=== PATIENT | male | born 1960 | race Caucasian/White ===

== ENCOUNTER → 2016-09-07 | Outpatient (CLI) | payer BC ==
--- NOTE | 2016-09-07 09:26 | MR ---
EXAMINATION TYPE: MR shoulder LT wo con DATE OF EXAM: 09/07/2016 6:53 AM COMPARISON: 12/02/2015 and radiographs 08/25/2016 HISTORY: 56-year-old male with left shoulder Pain, status post surgery slipped and fell on left shoul isaiah TECHNIQUE: Multiplanar, multisequence imaging of the left shoulder is performed without contrast. FINDINGS: Intracapsular portion of the long head biceps tendon is not seen and could be severely tendinotic. Th e extracapsular portion of the lung biceps tendon is first seen along the lower bicipital groove, sag ittal image 7. This is a new finding from prior exam. There appears to be partial tearing of the superior most aspect of the subscapularis tendon. Mild degenerative joint space narrowing and marginal spurring at the acromioclavicular joint likely r elated to interval subacromial decompression. There is been interval rotator cuff repair with double row of suture anchors present. Supraspinatus a nd infraspinatus tendons are markedly heterogeneous but there is no retracted full-thickness rotator cuff tear seen. There is fluid within the overlying subacromial/subdeltoid bursa and new patchy bone marrow edema along the superior humeral head and a 2.1 cm wide by 1.9 cm AP and Hill-Sachs deformity which appears slightly larger as compared to 12/02/2015. Moderate cartilage thinning within the glenohumeral joint. The superior labrum appears degenerative and torn. There is greater degree of abnormal signal within the anterior superior labrum is compared to prior exam and possible tear of the anterior labrum exten ding down to the anterior inferior glenoid. No significant glenohumeral joint effusion. Spinoglenoid groove is clear. There are mild fatty streaks now seen within the subscapularis, supraspinatus and infraspinatus muscl e bellies. Patchy red marrow is present and can be seen in the setting of anemia, obesity, smoking, and chronic disease. IMPRESSION: 1. Interval supraspinatus and infraspinatus tendon repair. No evidence for a full-thickness retracte d re-tear. Partial tear of the superior most subscapularis tendon fibers. The majority of the subscap ularis tendon remains intact. 2. Extensive heterogeneity of the cuff could be combination of postsurgical change, tendinosis, and c ontusion given the patient's reported injury. 3. New bone marrow edema at the patient's Hill-Sachs deformity which now appears minimally larger. Co rrelate for a recent recurrent shoulder dislocation. Mild to moderate subacromial/subdeltoid bursal effusion is probably reactive. 4. Progressive superior labral tear now with possible extension anteriorly down to the anterior infer ior glenoid. 5. The intracapsular long head biceps tendon is now poorly visualized and may be torn. 6. Mild to moderate glenohumeral joint osteoarthrosis.
== END | disposition home or self-care (01) ==
LOC: RADMRIMAIN 06:15
PROVIDERS: ATTEND Orthopaedic Surgery
DX: S46.812A Strain of other muscles, fascia and tendons at shoulder and upper arm level, left arm, initial encounter (principal); Z98.890 Other specified postprocedural states; S43.432A Superior glenoid labrum lesion of left shoulder, initial encounter; M19.012 Primary osteoarthritis, left shoulder

== ENCOUNTER → 2017-06-03 | Outpatient (CLI) | payer BC | END | disposition home or self-care (01) | LOC: LABWHC1 12:34 | PROVIDERS: ATTEND Family Medicine | DX: E78.5 Hyperlipidemia, unspecified (principal); E03.9 Hypothyroidism, unspecified | CPT/HCPCS: 36415; 80061; 84439; 84443 ==

== ENCOUNTER 2017-07-29 23:58 | Emergency (ER) | payer BC ==
[2017-07-30] MEDS ORDERED: ACETAMINOPHEN IV (For NPO) 1,000 MG in EMPTY BAG 1 BAG IVPB STA (00:33)
[2017-07-30] MEDS ORDERED: SODIUM CHLORIDE 0.9% 1,000 ML IV STA ×2 (00:33)
[2017-07-30] MEDS ORDERED: KETOROLAC 30 MG/ML 1 ML VIAL IVP STA ×2 (00:33→03:44)
[2017-07-30] MEDS ORDERED: SODIUM CHLORIDE 0.9% 500 ML IV STA (00:33)
[2017-07-30 00:46] LABS: Basophils % (A) 0 %; Eosinophils # (A) 0.2 k/uL (0-0.7); Eosinophils % (A) 1 %; HCT 46.3 % (39.0-53.0); HGB 14.7 gm/dL (13.0-17.5); Lymphocytes # (A) 0.7 k/uL (1.0-4.8); Lymphocytes % (A) 5 %; MCH 31.2 pg (25.0-35.0); MCHC 31.9 g/dL (31.0-37.0); MCV 97.9 fL (80.0-100.0); Mean Platelet Volume 7.3; Monocytes % (A) 7 %; Neutrophils # (A) 11.4 k/uL (1.3-7.7); Neutrophils % (A) 85 %; Platelet Count 234 k/uL (150-450); RBC 4.73 m/uL (4.30-5.90); RDW 12.5 % (11.5-15.5); WBC 13.4 k/uL (3.8-10.6)
[2017-07-30 00:57] LABS: ALT 22 U/L (21-72); AST 20 U/L (17-59); Albumin 3.9 g/dL (3.5-5.0); Alkaline Phosphatase 70 U/L (38-126); Anion Gap 10 mmol/L; Blood Urea Nitrogen 16 mg/dL (9-20); Calcium 8.1 mg/dL (8.4-10.2); Carbon Dioxide 29 mmol/L (22-30); Chloride 99 mmol/L (98-107); Glucose 92 mg/dL (74-99); Lipase 69 U/L (23-300); Magnesium 1.9 mg/dL (1.6-2.3); Potassium 4.2 mmol/L (3.5-5.1); Sodium 138 mmol/L (137-145); Total Bilirubin 0.7 mg/dL (0.2-1.3); Total Protein 6.6 g/dL (6.3-8.2)
[2017-07-30 00:59] LABS: Creatine Kinase 146 U/L (55-170)
[2017-07-30 01:00] LABS: D-Dimer 0.66 mg/L FEU (<0.60); Partial Thromboplastin Time 25.5 sec (22.0-30.0); Prothrombin Time 9.5 sec (9.0-12.0)
--- NOTE | 2017-07-30 01:04 | ED ---
General Adult HPI - General Chief complaint: Chest Pain Stated complaint: Chest Pain/GALILEO Time Seen by Provider: 07/30/17 00:07 Source: patient, RN notes reviewed, old records reviewed Mode of arrival: wheelchair Limitations: no limitations - History of Present Illness Initial comments: This is a 57-year-old male for the ER for evaluation of chest pain chest pain that awoke him from sleep earlier this morning and has persisted until today. Patient has no prior history of heart disease. Patient states his chest pain is having is in discomfort in his chest with shortness of breath. Patient states he does feel that he may have a fever, has been diaphoretic. No travel history no known sick contacts. Patient states he has difficulty taking a deep breath - Related Data Home Medications Medication Instructions Recorded Confirmed Ascorbic Acid [Vitamin C] 3,000 mg PO DAILY 07/30/17 07/30/17 Aspirin [Children's Aspirin] 81 mg PO DAILY 07/30/17 07/30/17 Echinacea 400 mg PO DAILY 07/30/17 07/30/17 Losartan Potassium [Losartan 50 mg PO DAILY 07/30/17 07/30/17 Potassium] Saw [place] 160 mg PO DAILY 07/30/17 07/30/17 Terbinafine [LamISIL] 250 mg PO DAILY 07/30/17 07/30/17 Thyroid,Pork [Thyroid] 30 mg PO DAILY 07/30/17 07/30/17 Ubidecarenone [Co Q-10] 400 mg PO DAILY 07/30/17 07/30/17 Previous Rx's Medication Instructions Recorded Acetaminophen with Codeine 1 tab PO Q4H PRN #20 tab 07/30/17 [Tylenol w/codeine #3] Albuterol Sulfate [Proair Hfa] 1 - 2 puff INHALATION Q4H PRN #1 07/30/17 inhaler Levofloxacin [Levaquin] 750 mg PO DAILY #7 tab 07/30/17 Naproxen [Naprosyn] 500 mg PO Q12HR PRN #30 tab 07/30/17 Allergies Allergy/AdvReac Type Severity Reaction Status Date / Time latex Allergy Itching/JESUS Verified 07/30/17 00:05 H Milk Containing Products Allergy "SINUS Verified 07/30/17 00:05 [Dairy] PROBLEMS" Penicillins Allergy Unknown Verified 07/30/17 00:05 Childhood wheat Allergy "SINUS Verified 07/30/17 00:05 PROBLEMS" Yeast Allergy "SINUS Verified 07/30/17 00:05 PROBLEMS" Review of Systems ROS Statement: Those systems with pertinent positive or pertinent negative responses have been documented in the HPI. ROS Other: All systems not noted in ROS Statement are negative. Past Medical History Past Medical History: Skin Disorder Additional Past Medical History / Comment(s): hx of scoriasis History of Any Multi-Drug Resistant Organisms: None Reported Past Surgical History: Appendectomy Past Anesthesia/Blood Transfusion Reactions: No Reported Reaction Past Psychological History: No Psychological Hx Reported Smoking Status: Never smoker Past Alcohol Use History: None Reported Past Drug Use History: None Reported - Past Family History Father Family Medical History: Cancer Additional Family Medical History / Comment(s): prostate General Exam Limitations: no limitations General appearance: alert, in no apparent distress Head exam: Present: atraumatic, normocephalic, normal inspection Eye exam: Present: normal appearance, PERRL, EOMI. Absent: scleral icterus, conjunctival injection, periorbital swelling ENT exam: Present: normal exam, mucous membranes moist Neck exam: Present: normal inspection. Absent: tenderness, meningismus, lymphadenopathy Respiratory exam: Present: normal lung sounds bilaterally. Absent: respiratory distress, wheezes, rales, rhonchi, stridor Cardiovascular Exam: Present: regular rate, normal rhythm, normal heart sounds. Absent: systolic murmur, diastolic murmur, rubs, gallop, clicks GI/Abdominal exam: Present: soft, normal bowel sounds. Absent: distended, tenderness, guarding, rebound, rigid Extremities exam: Present: normal inspection, full ROM, normal capillary refill. Absent: tenderness, pedal edema, joint swelling, calf tenderness Back exam: Present: normal inspection Neurological exam: Present: alert, oriented X3, CN II-XII intact Psychiatric exam: Present: normal affect, normal mood Skin exam: Present: warm, dry, intact, normal color. Absent: rash Course Vital Signs 07/30/17 07/30/17 07/30/17 00:01 00:30 01:46 Temperature 100.3 F H Pulse Rate 83 82 Respiratory 22 22 18 Rate Blood Pressure 159/87 135/76 O2 Sat by Pulse 96 100 Oximetry 07/30/17 07/30/17 07/30/17 02:40 03:09 03:19 Temperature 98.8 F Pulse Rate 77 70 74 Respiratory 20 18 Rate Blood Pressure 111/65 110/64 O2 Sat by Pulse 97 99 Oximetry 07/30/17 07/30/17 07/30/17 03:25 04:03 05:20 Temperature Pulse Rate 75 87 81 Respiratory 20 18 Rate Blood Pressure 114/61 104/62 O2 Sat by Pulse 95 98 Oximetry - Reevaluation(s) Reevaluation #1: Multiple re-evaluations, troponin 2, chest pain resolved. Patient is a positive pneumonia feeling better with initial treatment and patient would like to be discharged EKG Findings - EKG Comments: EKG Findings:: EKG shows normal sinus rhythm rate of 81, MI 146, QRS 80, QTC 411 Medical Decision Making - Medical Decision Making 57 male the ER for evaluation of chest pain. Patient with positive pneumonia, patient underwent troponin 2, CTA which were all negative, patient's feeling better with breathing treatments here in the ER. As well as fever control. Patient can be discharged home - Lab Data Result diagrams: 07/30/17 00:30 07/30/17 00:30 Lab Results 07/30/17 07/30/17 07/30/17 Range/Units 00:30 00:30 00:30 WBC 13.4 H (3.8-10.6) k/uL RBC 4.73 (4.30-5.90) m/uL Hgb 14.7 (13.0-17.5) gm/dL Hct 46.3 (39.0-53.0) % MCV 97.9 (80.0-100.0) fL MCH 31.2 (25.0-35.0) pg MCHC 31.9 (31.0-37.0) g/dL RDW 12.5 (11.5-15.5) % Plt Count 234 (150-450) k/uL Neutrophils % 85 % Lymphocytes % 5 % Monocytes % 7 % Eosinophils % 1 % Basophils % 0 % Neutrophils # 11.4 H (1.3-7.7) k/uL Lymphocytes # 0.7 L (1.0-4.8) k/uL Monocytes # 1.0 (0-1.0) k/uL Eosinophils # 0.2 (0-0.7) k/uL Basophils # 0.0 (0-0.2) k/uL PT (9.0-12.0) sec INR (<1.2) APTT (22.0-30.0) sec D-Dimer (<0.60) mg/L FEU Sodium (137-145) mmol/L Potassium (3.5-5.1) mmol/L Chloride (98-107) mmol/L Carbon Dioxide (22-30) mmol/L Anion Gap mmol/L BUN (9-20) mg/dL Creatinine (0.66-1.25) mg/dL Est GFR (MDRD) Af Amer (>60 ml/min/1.73 sqM) Est GFR (MDRD) Non-Af (>60 ml/min/1.73 sqM) Glucose (74-99) mg/dL Calcium (8.4-10.2) mg/dL Magnesium (1.6-2.3) mg/dL Total Bilirubin (0.2-1.3) mg/dL AST (17-59) U/L ALT (21-72) U/L Alkaline Phosphatase (38-126) U/L Total Creatine Kinase 146 (55-170) U/L CK-MB (CK-2) 1.1 (0.0-2.4) ng/mL CK-MB (CK-2) Rel Index 0.8 Troponin I <0.012 (0.000-0.034) ng/mL NT-Pro-B Natriuret Pep pg/mL Total Protein (6.3-8.2) g/dL Albumin (3.5-5.0) g/dL Lipase (23-300) U/L Influenza Type A RNA Not Detected (Not Detectd) Influenza Type B (PCR) Not Detected (Not Detectd) 07/30/17 07/30/17 07/30/17 Range/Units 00:30 00:30 00:30 WBC (3.8-10.6) k/uL RBC (4.30-5.90) m/uL Hgb (13.0-17.5) gm/dL Hct (39.0-53.0) % MCV (80.0-100.0) fL MCH (25.0-35.0) pg MCHC (31.0-37.0) g/dL RDW (11.5-15.5) % Plt Count (150-450) k/uL Neutrophils % % Lymphocytes % % Monocytes % % Eosinophils % % Basophils % % Neutrophils # (1.3-7.7) k/uL Lymphocytes # (1.0-4.8) k/uL Monocytes # (0-1.0) k/uL Eosinophils # (0-0.7) k/uL Basophils # (0-0.2) k/uL PT 9.5 (9.0-12.0) sec INR 1.0 (<1.2) APTT 25.5 (22.0-30.0) sec D-Dimer 0.66 H (<0.60) mg/L FEU Sodium 138 (137-145) mmol/L Potassium 4.2 (3.5-5.1) mmol/L Chloride 99 (98-107) mmol/L Carbon Dioxide 29 (22-30) mmol/L Anion Gap 10 mmol/L BUN 16 (9-20) mg/dL Creatinine 0.80 (0.66-1.25) mg/dL Est GFR (MDRD) Af Amer >60 (>60 ml/min/1.73 sqM) Est GFR (MDRD) Non-Af >60 (>60 ml/min/1.73 sqM) Glucose 92 (74-99) mg/dL Calcium 8.1 L (8.4-10.2) mg/dL Magnesium 1.9 (1.6-2.3) mg/dL Total Bilirubin 0.7 (0.2-1.3) mg/dL AST 20 (17-59) U/L ALT 22 (21-72) U/L Alkaline Phosphatase 70 (38-126) U/L Total Creatine Kinase (55-170) U/L CK-MB (CK-2) (0.0-2.4) ng/mL CK-MB (CK-2) Rel Index Troponin I (0.000-0.034) ng/mL NT-Pro-B Natriuret Pep 74 pg/mL Total Protein 6.6 (6.3-8.2) g/dL Albumin 3.9 (3.5-5.0) g/dL Lipase 69 (23-300) U/L Influenza Type A RNA (Not Detectd) Influenza Type B (PCR) (Not Detectd) 02/23/18 Range/Units 03:33 WBC (3.8-10.6) k/uL RBC (4.30-5.90) m/uL Hgb (13.0-17.5) gm/dL Hct (39.0-53.0) % MCV (80.0-100.0) fL MCH (25.0-35.0) pg MCHC (31.0-37.0) g/dL RDW (11.5-15.5) % Plt Count (150-450) k/uL Neutrophils % % Lymphocytes % % Monocytes % % Eosinophils % % Basophils % % Neutrophils # (1.3-7.7) k/uL Lymphocytes # (1.0-4.8) k/uL Monocytes # (0-1.0) k/uL Eosinophils # (0-0.7) k/uL Basophils # (0-0.2) k/uL PT (9.0-12.0) sec INR (<1.2) APTT (22.0-30.0) sec D-Dimer (<0.60) mg/L FEU Sodium (137-145) mmol/L Potassium (3.5-5.1) mmol/L Chloride (98-107) mmol/L Carbon Dioxide (22-30) mmol/L Anion Gap mmol/L BUN (9-20) mg/dL Creatinine (0.66-1.25) mg/dL Est GFR (MDRD) Af Amer (>60 ml/min/1.73 sqM) Est GFR (MDRD) Non-Af (>60 ml/min/1.73 sqM) Glucose (74-99) mg/dL Calcium (8.4-10.2) mg/dL Magnesium (1.6-2.3) mg/dL Total Bilirubin (0.2-1.3) mg/dL AST (17-59) U/L ALT (21-72) U/L Alkaline Phosphatase (38-126) U/L Total Creatine Kinase (55-170) U/L CK-MB (CK-2) (0.0-2.4) ng/mL CK-MB (CK-2) Rel Index Troponin I <0.012 (0.000-0.034) ng/mL NT-Pro-B Natriuret Pep pg/mL Total Protein (6.3-8.2) g/dL Albumin (3.5-5.0) g/dL Lipase (23-300) U/L Influenza Type A RNA (Not Detectd) Influenza Type B (PCR) (Not Detectd) - Radiology Data Radiology results: report reviewed (Chest x-ray CTA chest positive for pneumonia ), image reviewed Disposition Clinical Impression: Atypical chest pain, Community acquired bacterial pneumonia Disposition: HOME SELF-CARE Condition: Good Instructions: Community Acquired Pneumonia (ED) Prescriptions: Acetaminophen with Codeine [Tylenol w/codeine #3] 1 tab PO Q4H PRN #20 tab PRN Reason: Pain Albuterol Sulfate [Proair Hfa] 1 - 2 puff INHALATION Q4H PRN #1 inhaler PRN Reason: Shortness Of Breath Levofloxacin [Levaquin] 750 mg PO DAILY #7 tab Naproxen [Naprosyn] 500 mg PO Q12HR PRN #30 tab PRN Reason: Pain Referrals: Torin Washington DO [Primary Care Provider] - 1-2 days
[2017-07-30 01:13] LABS: Creatine Kinase MB 1.1 ng/mL (0.0-2.4); Troponin I <0.012 ng/mL (0.000-0.034)
[2017-07-30] MEDS ORDERED: RX INFO: IV CONTRAST WAS GIVEN 1 EACH MISC MISCELLANE PRN (01:17)
--- NOTE | 2017-07-30 01:38 | XR ---
EXAMINATION TYPE: XR chest 2V DATE OF EXAM: 07/30/2017 COMPARISON: NONE HISTORY: Chest pain TECHNIQUE: Frontal and lateral views of the chest are obtained. FINDINGS: There is poor inspiration and some linear density at the left lung base. There is no heart failure. Heart size is normal. There are chest leads. There is no sign of mediastinal adenopathy. Rashid ny thorax is intact. IMPRESSION: There is some mild pleural reaction and subsegmental atelectasis at the left lung base. No heart failure.
--- NOTE | 2017-07-30 02:10 | CT ---
EXAMINATION TYPE: CT angio chest DATE OF EXAM: 07/30/2017 1:45 AM COMPARISON: NONE HISTORY: SOB/ CHEST PAIN CT DLP: 634.60 mGycm Automated exposure control for dose reduction was used. CONTRAST: CTA scan of the thorax is performed with IV Contrast, patient injected with 70 mL of Omnipaque 350, p ulmonary embolism protocol. There are 3-D post processed images.. FINDINGS: There is patchy mild infiltrate and atelectasis at the left lung base. There is small left pleural ef fusion. There is a very small pericardial effusion. There is no mediastinal adenopathy. Thoracic aorta is intact. There is no evidence of aneurysm or dis section. Ascending aorta measures 3.5 cm. I see no filling defects in the pulmonary arteries. There is no mediastinal adenopathy. There are no hilar masses. The bony thorax is intact.. IMPRESSION: NO EVIDENCE OF PULMONARY EMBOLISM. THERE IS COMBINED INFILTRATE AND ATELECTASIS AND PLEURAL FLUID AT THE LEFT LUNG BASE. MINUTE PERICARD IAL EFFUSION.
[2017-07-30] MEDS ORDERED: IPRATROPIUM-ALBUTEROL 3 ML NEB INHALATION STA (02:40)
[2017-07-30] MEDS ORDERED: LEVOFLOXACIN 750MG-D5W PMX 750 MG in DEXTROSE/WATER 1 150ML.BAG IVPB STA (02:41)
[2017-07-30 02:43] VITALS: TEMP 98.8
[2017-07-30 05:22] VITALS: BP 104/62; PULSE 81; RESP 18
== END 2017-07-30 05:20 | disposition home or self-care (01) ==
LOC: EC 23:58
DX: J15.9 Unspecified bacterial pneumonia (principal); R07.89 Other chest pain; Z91.040 Latex allergy status; Z91.018 Allergy to other foods; Z91.09 Other allergy status, other than to drugs and biological substances; Z88.0 Allergy status to penicillin; Z91.011 Allergy to milk products; Z53.20 Procedure and treatment not carried out because of patient's decision for unspecified reasons; Z79.82 Long term (current) use of aspirin; Z79.899 Other long term (current) drug therapy
CPT/HCPCS: 36415; 94640; 93005; 85379; 83880; 80053; 82550; 82553; 83690; 83735; 84484; 85025; 85610; 85730; 87040; 87502; 71046; 71275; 99285; 96365; 96375 ×2; 96361 ×2; Q9967; J1885; J1956; J0131

== ENCOUNTER → 2017-09-08 | Outpatient (CLI) | payer BC ==
--- NOTE | 2017-09-09 11:32 | ECHOF ---
Referral Reason:dyspnea R06.00 MEASUREMENTS -------- HEIGHT: 157.5 cm WEIGHT: 99.8 kg BP: 135/89 RVIDd: 3.1 cm (< 3.3) IVSd: 1.0 cm (0.6 - 1.1) LVIDd: 4.6 cm (3.9 - 5.3) LVPWd: 1.0 cm (0.6 - 1.1) IVSs: 1.4 cm LVIDs: 3.1 cm LVPWs: 1.4 cm LAESV Index (A-L): 21.65 ml/m Ao Diam: 3.3 cm (2.0 - 3.7) AV Cusp: 1.7 cm (1.5 - 2.6) LA Diam: 2.7 cm (2.7 - 3.8) MV E Benitez: 0.70 m/s MV DecT: 279 ms MV A Benitez: 0.84 m/s MV E/A Ratio: 0.84 RAP: 5.00 mmHg RVSP: 30.70 mmHg FINDINGS -------- Resting bradycardia (HR<60bpm). This was a technically adequate study. The left ventricular size is normal. Left ventricular wall thickness is normal. Overall left vent ricular systolic function is normal with, an EF between 55 - 60 %. The right ventricle is normal in size and function. Normal LA size by volume 22+/-6 ml/m2. The right atrium is normal in size. Aortic valve is trileaflet and is mildly thickened. There is no evidence of aortic regurgitation. There is no evidence of aortic stenosis. The mitral valve leaflets are mildly thickened. There is trace to mild mitral regurgitation. Mild tricuspid regurgitation present. Right ventricular systolic pressure is normal at < 35 mmHg. There is no evidence of pulmonary hypertension. There is no pulmonic regurgitation present. The aortic root is dilated measuring 3.7cm. Normal inferior vena cava with normal inspiratory collapse consistent with estimated right atrial pre ssure of 5 mmHg. There is no pericardial effusion. CONCLUSIONS -------- 1. Resting bradycardia (HR<60bpm). 2. This was a technically adequate study. 3. The left ventricular size is normal. 4. Left ventricular wall thickness is normal. 5. Overall left ventricular systolic function is normal with, an EF between 55 - 60 %. 6. Normal LA size by volume 22+/-6 ml/m2. 7. Aortic valve is trileaflet and is mildly thickened. 8. The mitral valve leaflets are mildly thickened. 9. There is trace to mild mitral regurgitation. 10. Mild tricuspid regurgitation present. 11. Right ventricular systolic pressure is normal at < 35 mmHg. 12. There is no evidence of pulmonary hypertension. 13. There is no pulmonic regurgitation present. 14. The aortic root is dilated measuring 3.7cm. 15. There is no pericardial effusion. [employer] ADJUSTMENT: Luis Fernando Hanks RDCS
== END | disposition home or self-care (01) ==
LOC: RADECHMAIN 15:01
PROVIDERS: ATTEND Family Medicine
DX: I08.3 Combined rheumatic disorders of mitral, aortic and tricuspid valves (principal)
CPT/HCPCS: 93306

== ENCOUNTER → 2017-09-22 | Outpatient (CLI) | payer BC ==
[2017-09-22 09:43] LABS: Basophils % (A) 1 %; Eosinophils # (A) 0.3 k/uL (0-0.7); Eosinophils % (A) 4 %; HCT 43.9 % (39.0-53.0); HGB 14.5 gm/dL (13.0-17.5); Lymphocytes # (A) 0.7 k/uL (1.0-4.8); Lymphocytes % (A) 10 %; MCH 30.7 pg (25.0-35.0); MCHC 33.1 g/dL (31.0-37.0); MCV 92.7 fL (80.0-100.0); Mean Platelet Volume 7.5; Monocytes # (A) 0.5 k/uL (0-1.0); Monocytes % (A) 7 %; Neutrophils % (A) 76 %; Platelet Count 225 k/uL (150-450); RBC 4.73 m/uL (4.30-5.90); RDW 12.8 % (11.5-15.5); WBC 6.5 k/uL (3.8-10.6)
[2017-09-22 10:01] LABS: ALT 29 U/L (21-72); AST 17 U/L (17-59)
== END | disposition home or self-care (01) ==
LOC: LABWHC1 09:10
PROVIDERS: ATTEND Dermatology MOHS-Micrographic Surgery
DX: B35.1 Tinea unguium (principal)
CPT/HCPCS: 36415; 84450; 84460; 85025

== ENCOUNTER → 2018-03-31 | Outpatient (CLI) | payer BC ==
--- NOTE | 2018-03-31 08:11 | CT ---
EXAMINATION TYPE: CT chest wo con DATE OF EXAM: 03/31/2018 COMPARISON: July 30, 2017 HISTORY: f/u to pneumonia, atelectasis CT DLP: [address] of the chest was performed with lung and mediastinal window settings submitted. The la ck of contrast limits evaluation of the vascular, mediastinal and parenchymal structures including th e upper abdomen. LUNGS: The lungs are clear and free of infiltrate. No atelectasis. No pulmonary nodule or mass is de tected. No pleural effusion. No CT evidence of interstitial lung disease. MEDIASTINUM/DARIO: Thoracic aorta is of normal caliber with limited evaluation given lack of contrast . The heart is not enlarged. No evidence for mediastinal mass. No lymph nodes greater than 1cm. UPPER ABDOMEN: No significant abnormality is seen. OTHER: No significant other abnormality. IMPRESSION: 1. No infiltrate or volume loss identified.
== END | disposition home or self-care (01) ==
LOC: RADCTMAIN 06:50
PROVIDERS: ATTEND Internal Medicine Sleep Medicine
DX: J18.9 Pneumonia, unspecified organism (principal); J98.11 Atelectasis
CPT/HCPCS: 71250

== ENCOUNTER 2020-08-30 06:25 | Emergency (ER) | payer BC ==
[2020-08-30 06:36] VITALS: TEMP 97.6
--- NOTE | 2020-08-30 07:14 | XR ---
EXAMINATION TYPE: XR chest 1V portable DATE OF EXAM: 08/30/2020 COMPARISON: 07/30/2017 HISTORY: Shortness of breath TECHNIQUE: Single frontal view of the chest is obtained. FINDINGS: There are patchy bilateral infiltrates with small effusion. Biapical pleural thickening. H eart size stable. Coarsened interstitium. No pneumothorax. IMPRESSION: 1. Patchy bilateral infiltrate stable.
--- NOTE | 2020-08-30 07:29 | ED ---
General Adult HPI - General Chief complaint: Shortness of Breath Stated complaint: low oxygen levels Time Seen by Provider: 08/30/20 06:43 Source: patient Mode of arrival: wheelchair Limitations: no limitations - History of Present Illness Initial comments: 60-year-old male presenting today for chief complaint of low oxygen readings while sleeping. Patient states his oxygen was around 88% while he was sleeping he thought that this was too low and presented to the ER. He states he has had covid now for over 11 days he states he tested positive over a week ago. Patient denies chest pain, he denies dyspnea, pain with a deep breath, he denies hemoptysis, leg swelling, nausea, vomiing, fevers, diarrhea. He states he has general fatigue and cough but "thats about it". Patient on arrival is in no distress, he is 96% on RA. No retractions or abdominal breathing. - Related Data Home Medications Medication Instructions Recorded Confirmed Ascorbic Acid [Vitamin C] 3,000 mg PO DAILY 07/30/17 07/30/17 Aspirin [Children's Aspirin] 81 mg PO DAILY 07/30/17 07/30/17 Echinacea 400 mg PO DAILY 07/30/17 07/30/17 Losartan Potassium 50 mg PO DAILY 07/30/17 07/30/17 [place] 160 mg PO DAILY 07/30/17 07/30/17 Terbinafine [LamISIL] 250 mg PO DAILY 07/30/17 07/30/17 Thyroid,Pork [Thyroid] 30 mg PO DAILY 07/30/17 07/30/17 Ubidecarenone [Co Q-10] 400 mg PO DAILY 07/30/17 07/30/17 Previous Rx's Medication Instructions Recorded Acetaminophen with Codeine 1 tab PO Q4H PRN #20 tab 07/30/17 [Tylenol w/codeine #3] Albuterol Sulfate [Proair Hfa] 1 - 2 puff INHALATION Q4H PRN #1 07/30/17 inhaler Levofloxacin [Levaquin] 750 mg PO DAILY #7 tab 07/30/17 Naproxen [Naprosyn] 500 mg PO Q12HR PRN #30 tab 07/30/17 Allergies Allergy/AdvReac Type Severity Reaction Status Date / Time latex Allergy Itching/JESUS Verified 08/30/20 07:00 H Penicillins Allergy Unknown Verified 08/30/20 07:00 Childhood Milk Containing Products AdvReac "SINUS Verified 08/30/20 07:00 [Dairy] PROBLEMS" wheat AdvReac "SINUS Verified 08/30/20 07:00 PROBLEMS" Yeast AdvReac "SINUS Verified 08/30/20 07:00 PROBLEMS" Review of Systems ROS Statement: Those systems with pertinent positive or pertinent negative responses have been documented in the HPI. ROS Other: All systems not noted in ROS Statement are negative. Past Medical History Past Medical History: Skin Disorder Additional Past Medical History / Comment(s): hx of scoriasis History of Any Multi-Drug Resistant Organisms: None Reported Past Surgical History: Appendectomy Past Anesthesia/Blood Transfusion Reactions: No Reported Reaction Past Psychological History: No Psychological Hx Reported Smoking Status: Never smoker Past Alcohol Use History: None Reported Past Drug Use History: None Reported - Past Family History Father Family Medical History: Cancer Additional Family Medical History / Comment(s): prostate General Exam - General Exam Comments Initial Comments: General: The patient is awake and alert, in no distress, and does not appear acutely ill. Eye: Pupils are equal, round and reactive to light, extra-ocular movements are intact. No nystagmus. There is normal conjunctiva bilaterally. No signs of icterus. Ears, nose, mouth and throat: There are moist mucous membranes and no oral lesions. Neck: The neck is supple, there is no tenderness or JVD. Cardiovascular: There is a regular rate and rhythm. No murmur, rub or gallop is appreciated. Respiratory: Lungs are clear to auscultation, respirations are non-labored, breath sounds are equal. No wheezes, stridor, rales, or rhonchi. No retractions no abdominal breathing Musculoskeletal: Normal ROM, no tenderness. Strength 5/5. Sensation intact. Radial and DP pulses equal bilaterally 2+. Neurological: A&O x 3. CN II-XII intact grossly, There are no obvious motor or sensory deficits. Coordination appears grossly intact. Speech is normal. Skin: Skin is warm and dry and no rashes or lesions are noted. No calf pain or LE edema. Psychiatric: Cooperative, appropriate mood & affect, normal judgment. Limitations: no limitations Course Vital Signs 08/30/20 08/30/20 08/30/20 06:28 06:55 07:50 Temperature 97.6 F Pulse Rate 62 88 Respiratory 22 16 20 Rate Blood Pressure 126/81 101/76 O2 Sat by Pulse 96 96 Oximetry - Reevaluation(s) Reevaluation #1: Ambulated patient in room with oxygen monitor on, he remained at 96-94%. No signs of distress. 08/30/20 Medical Decision Making - Medical Decision Making 60-year-old male who is covid 19 positive, presenting for low oxygen while sleep ing. pt currently 96% on RA both sitting and ambulating. CXR b/l infiltrates. Patient does not appear toxic nor in distress. Patient case discussed with Dr. Concepcion at this time I feel patient is stable for discharge with PCP f/u. Continue home monitoring and return for shortness of breath, CP or low readings as discussed. Disposition Clinical Impression: COVID-19, Pneumonia due to COVID-19 virus Disposition: HOME SELF-CARE Condition: Good Instructions (If sedation given, give patient instructions): Coronavirus Disease 2019 (COVID-19) Additional Instructions: Please use medication as discussed. Please follow-up with family doctor in the next 2 days. Please return to emergency room if the symptoms increase or worsen or for any other concerns. Is patient prescribed a controlled substance at d/c from ED?: No Referrals: Torin Washington DO [Primary Care Provider] - 1-2 days Time of Disposition: 07:27
[2020-08-30 07:52] VITALS: BP 101/76; PULSE 88; RESP 20
== END 2020-08-30 07:52 | disposition home or self-care (01) ==
LOC: EC 06:25
DX: U07.1 COVID-19 (principal); J12.82 Pneumonia due to coronavirus disease 2019
CPT/HCPCS: 71045; 99284

== ENCOUNTER 2020-09-06 16:14 | Observation (INO) | payer BC ==
[2020-09-06 20:02] LABS: Basophils # (A) 0.1 k/uL (0-0.2); Basophils % (A) 1 %; Eosinophils # (A) 0.1 k/uL (0-0.7); Eosinophils % (A) 1 %; HCT 46.9 % (39.0-53.0); HGB 16.1 gm/dL (13.0-17.5); Lymphocytes # (A) 0.3 k/uL (1.0-4.8); Lymphocytes % (A) 3 %; MCH 32.5 pg (25.0-35.0); MCHC 34.4 g/dL (31.0-37.0); MCV 94.4 fL (80.0-100.0); Mean Platelet Volume 7.5; Monocytes # (A) 0.5 k/uL (0-1.0); Monocytes % (A) 4 %; Neutrophils # (A) 10.4 k/uL (1.3-7.7); Neutrophils % (A) 92 %; Platelet Count 434 k/uL (150-450); RBC 4.97 m/uL (4.30-5.90); RDW 12.3 % (11.5-15.5); WBC 11.4 k/uL (3.8-10.6)
[2020-09-06 20:13] LABS: ALT 84 U/L (4-49); AST 44 U/L (17-59); African American GFR (CKD) >90 (>60 ml/min/1.73 sqM); Albumin 3.3 g/dL (3.5-5.0); Alkaline Phosphatase 42 U/L (38-126); Anion Gap 5 mmol/L; Blood Urea Nitrogen 29 mg/dL (9-20); Calcium 7.7 mg/dL (8.4-10.2); Carbon Dioxide 26 mmol/L (22-30); Chloride 101 mmol/L (98-107); Glucose 117 mg/dL (74-99); Magnesium 2.4 mg/dL (1.6-2.3); Non-African American GFR(CKD) 83 (>60 ml/min/1.73 sqM); Potassium 5.9 mmol/L (3.5-5.1); Sodium 132 mmol/L (137-145); Total Bilirubin 0.8 mg/dL (0.2-1.3); Total Protein 5.9 g/dL (6.3-8.2)
--- NOTE | 2020-09-06 20:17 | ED ---
Chest Pain HPI - General Chief Complaint: Chest Pain Stated Complaint: Chest pain, Covid pneumonia Time Seen by Provider: 09/06/20 20:00 Source: patient, RN notes reviewed Mode of arrival: ambulatory Limitations: no limitations - History of Present Illness Initial Comments: Patient is a 60-year-old male that presents emergency department with several ananth uts of chest pain. He notes the pain is searing 10 out of 10 constant. He noted that he's had several bouts that lasted approximately 15-20 minutes. But today he noted that it was lasting longer. He said that he now has some chest tightness but no real pain while sitting in a wheelchair during exam and interview. He was well-appearing, well-hydrated in no apparent distress or pain. She denied any aggravating incident such as shortness activity walking changing position standing up. She noted that nothing is helped the pain at home. He noted that he does not have any cardiac history. He denied any shortness of breath headache nausea vomiting diarrhea constipation fever fatigue chills. - Related Data Home Medications Medication Instructions Recorded Confirmed Ascorbic Acid [Vitamin C] 1,000 mg PO DAILY 07/30/17 09/06/20 Losartan Potassium 50 mg PO DAILY 07/30/17 09/06/20 Aspirin EC [Ecotrin Low Dose] 81 mg PO DAILY 09/06/20 09/06/20 Cholecalciferol [Vitamin D3 (10 10 mcg PO DAILY 09/06/20 09/06/20 Mcg = 400 Iu)] Dexamethasone [Decadron] 6 mg PO DAILY 09/06/20 09/06/20 Thyroid,Pork [Motor Coach Bus Driver Thyroid] 30 mg PO DAILY 09/06/20 09/06/20 Zinc Gluconate [Zinc] 50 mg PO DAILY 09/06/20 09/06/20 Allergies Allergy/AdvReac Type Severity Reaction Status Date / Time cranberry Allergy Unknown Verified 09/06/20 20:58 latex Allergy Itching/JESUS Verified 09/06/20 20:58 H Penicillins Allergy Unknown Verified 09/06/20 20:58 Childhood Pepper Allergy Unknown Verified 09/06/20 20:58 radish Allergy Unknown Verified 09/06/20 20:58 tuna oil Allergy Unknown Verified 09/06/20 20:58 Milk Containing Products AdvReac "SINUS Verified 09/06/20 20:58 [Dairy] PROBLEMS" wheat AdvReac "SINUS Verified 09/06/20 20:58 PROBLEMS" Yeast AdvReac "SINUS Verified 09/06/20 20:58 PROBLEMS" Review of Systems ROS Statement: Those systems with pertinent positive or pertinent negative responses have been documented in the HPI. ROS Other: All systems not noted in ROS Statement are negative. EKG Findings - EKG Comments: EKG Findings:: Ventricular rate 53 bpm, UT interval 140 ms, QRS duration 74 ms, QT/QTc 408/380 ms, PRT axes 42/29/60. Sinus bradycardia, possible left atrial enlargement, cannot rule out anterior infarct, age undetermined. Abnormal EKG Past Medical History Past Medical History: Skin Disorder Additional Past Medical History / Comment(s): hx of scoriasis History of Any Multi-Drug Resistant Organisms: None Reported Past Surgical History: Appendectomy Past Anesthesia/Blood Transfusion Reactions: No Reported Reaction Past Psychological History: No Psychological Hx Reported Smoking Status: Never smoker Past Alcohol Use History: None Reported Past Drug Use History: None Reported - Past Family History Father Family Medical History: Cancer Additional Family Medical History / Comment(s): prostate General Exam Limitations: no limitations General appearance: alert, in no apparent distress, obese Head exam: Present: atraumatic, normocephalic, normal inspection Eye exam: Present: normal appearance, PERRL, EOMI. Absent: scleral icterus, conjunctival injection, periorbital swelling Neck exam: Present: normal inspection. Absent: tenderness, meningismus, lymphadenopathy Respiratory exam: Present: normal lung sounds bilaterally. Absent: respiratory distress, wheezes, rales, rhonchi, stridor Cardiovascular Exam: Present: regular rate, normal rhythm, normal heart sounds. Absent: systolic murmur, diastolic murmur, rubs, gallop, clicks GI/Abdominal exam: Present: soft, normal bowel sounds. Absent: distended, tenderness, guarding, rebound, rigid Extremities exam: Present: normal inspection, full ROM, normal capillary refill. Absent: tenderness, pedal edema, joint swelling, calf tenderness Neurological exam: Present: alert, oriented X3, CN II-XII intact Psychiatric exam: Present: normal affect, normal mood Skin exam: Present: warm, dry, intact, normal color. Absent: rash Course Vital Signs 09/06/20 17:08 Temperature 98 F Pulse Rate 55 L Respiratory 16 Rate Blood Pressure 121/75 O2 Sat by Pulse 98 Oximetry Chest Pain MDM - MDM 60-year-old male presenting with several day history of intermittent chest pain. Labs, EKG, chest x-ray ordered. Chest x-ray: There is a change in pattern of peripheral pulmonary infiltrates. These appear slightly worsened recent exam. No heart failure seen. elevated troponins at 0.0 [address] Goodson, patient will be admitted for further evaluation and observation. Dr. ivan take the admit, will consult Dr. Hyde Disposition Clinical Impression: Chest pain Disposition: ADMITTED IP TO THIS HOSP Condition: Stable Is patient prescribed a controlled substance at d/c from ED?: No Referrals: Torin Washington DO [Primary Care Provider] - 1-2 days Time of Disposition: 21:24
[2020-09-06 20:21] LABS: INR 1.1 (<1.2); Partial Thromboplastin Time 24.9 sec (22.0-30.0); Prothrombin Time 11.3 sec (9.0-12.0)
--- NOTE | 2020-09-06 20:34 | XR ---
EXAMINATION TYPE: XR chest 2V DATE OF EXAM: 09/06/2020 COMPARISON: NONE HISTORY: S/P TECHNIQUE: 2 views FINDINGS: There is some patchy peripheral bilateral pulmonary infiltrates. There is also probably ple ural thickening. Heart size is normal. There is no heart failure. IMPRESSION: There is a changing pattern of peripheral pulmonary infiltrates. These appear slightly wo rse than recent exam. No heart failure seen.
[2020-09-06] MEDS ORDERED: NALOXONE 0.4 MG/ML 1 ML VIAL IV PRN (21:17)
[2020-09-06] MEDS ORDERED: ASPIRIN 81 MG PO STA (21:22)
[2020-09-06] MEDS ORDERED: NITROGLYCERIN SL TABS 0.4 MG TAB SUBLINGUAL PRN (21:22)
[2020-09-06] MEDS ORDERED: FUROSEMIDE 10 MG/ML 2 ML VIAL IV ONE (21:35)
[2020-09-06] MEDS ORDERED: HEPARIN SODIUM 1,000 UN/ML (10ML VL) IV ONE (22:23)
[2020-09-06] MEDS ORDERED: HEPARIN SODIUM 1,000 UN/ML (10ML VL) IV PRN (22:23)
[2020-09-06] MEDS ORDERED: HEPARIN SOD,PORK IN 0.45% NACL 25,000 UNIT in 0.45% NACL 1 250ML.BAG IV SCH (22:30)
[2020-09-06 22:56] LABS: Basophils % (A) 0 %; Eosinophils % (A) 0 %; HCT 46.8 % (39.0-53.0); HGB 15.9 gm/dL (13.0-17.5); Lymphocytes # (A) 0.3 k/uL (1.0-4.8); Lymphocytes % (A) 4 %; MCH 32.1 pg (25.0-35.0); MCHC 33.9 g/dL (31.0-37.0); MCV 94.6 fL (80.0-100.0); Mean Platelet Volume 7.8; Monocytes # (A) 0.3 k/uL (0-1.0); Monocytes % (A) 3 %; Neutrophils # (A) 8.5 k/uL (1.3-7.7); Neutrophils % (A) 92 %; Platelet Count 461 k/uL (150-450); RBC 4.94 m/uL (4.30-5.90); RDW 12.2 % (11.5-15.5); WBC 9.2 k/uL (3.8-10.6)
[2020-09-06 23:05] LABS: Partial Thromboplastin Time 24.4 sec (22.0-30.0); Prothrombin Time 11.1 sec (9.0-12.0)
[2020-09-06] MEDS: SODIUM CHLORIDE 0.9% 1,000 ML IV SCH (23:11)
[2020-09-07] MEDS: ASCORBIC ACID 500 MG TAB PO SCH (09:11)
[2020-09-07] MEDS: CHOLECALCIFEROL 10 MCG (400 IU) TABLET PO SCH (09:12)
[2020-09-07] MEDS: THYROID, PORK 30 MG TAB PO SCH (09:12)
[2020-09-07] MEDS: FAMOTIDINE 20 MG/2 ML VIAL IV SCH ×2 (09:12→20:17)
[2020-09-07] MEDS: dexAMETHasone 2 MG TAB PO SCH (09:12)
[2020-09-07] MEDS: ZINC SULFATE 220 MG CAP PO SCH (09:12)
[2020-09-07 09:13] LABS: Basophils % (A) 0 %; Eosinophils % (A) 0 %; HCT 47.6 % (39.0-53.0); HGB 15.5 gm/dL (13.0-17.5); Lymphocytes # (A) 0.6 k/uL (1.0-4.8); Lymphocytes % (A) 6 %; MCH 31.3 pg (25.0-35.0); MCHC 32.5 g/dL (31.0-37.0); MCV 96.3 fL (80.0-100.0); Mean Platelet Volume 7.9; Monocytes # (A) 0.6 k/uL (0-1.0); Monocytes % (A) 6 %; Neutrophils # (A) 8.3 k/uL (1.3-7.7); Neutrophils % (A) 87 %; Platelet Count 435 k/uL (150-450); RBC 4.94 m/uL (4.30-5.90); RDW 12.7 % (11.5-15.5); WBC 9.7 k/uL (3.8-10.6)
[2020-09-07 09:40] LABS: Calcium 7.6 mg/dL (8.4-10.2); Potassium 5.7 mmol/L (3.5-5.1)
[2020-09-07] MEDS ORDERED: LOSARTAN 50 MG TAB PO SCH (11:00)
--- NOTE | 2020-09-07 11:02 | P.CRDCN ---
History of Present Illness Consult date: 09/07/20 History of present illness: CHIEF COMPLAINT: Chest pain HISTORY OF PRESENT ILLNESS: This is a 60 year old male with a past medical history significant for hypertension and hypothyroidism. We have been asked to see the patient in consultation for chest pain. Patient presented to the hospital with a chief complaint of multiple bouts of chest pain that last for 10-15 minutes. He was found to be positive for Covid 19. Patient was admitted to the hospital for further evaluation. He was placed on IV heparin. He is on room air with oxygen saturations greater than 92%. Telemetry reveals sinus bradycardia with heart rate in the 50s. He is afebrile. Blood pressure 119/70. DIAGNOSTICS: EKG reveals sinus bradycardia with no acute ischemic changes. Chest xray peripheral pulmonary infiltrates. These appear slightly worse than recent exam. No heart failure. Laboratory data: WBC 9.7. Hemoglobin 15.5. Platelet count 435. Sodium 134. Potassium 5.7. BUN 26. Creatinine 1.07. Troponin 0.061. 0.089. 0.057 Current home cardiac medications include losartan 50 mg daily Echocardiogram completed in 2018 revealed ejection fraction 55-60%, mild mitral regurgitation, and mild tricuspid regurgitation. REVIEW OF SYSTEMS: Thorough review of systems not completed secondary to limited evaluation/examination and due to Covid19 PHYSICAL EXAM: Thorough physical exam not completed secondary to limited evaluation/examination and due to Covid19 ASSESSMENT: Covid 19 Chest pain, secondary to above Abnormal troponins, not suggestive of myocardial injury, likely secondary to Covid Hyperkalemia Hypertension Hypothyroidism PLAN: An acute coronary event has been ruled out Obtain 2D echo to assess cardiac structure and function Resume home medications Continue IV heparin Begin nitro paste Continue telemetry monitoring Further recommendations pending patient course Nurse practitioner note has been reviewed by physician. Signing provider agrees with the documented findings, assessment, and plan of care. Past Medical History Past Medical History: Hypertension, Skin Disorder, Thyroid Disorder Additional Past Medical History / Comment(s): hx of scoriasis History of Any Multi-Drug Resistant Organisms: None Reported Past Surgical History: Appendectomy Past Anesthesia/Blood Transfusion Reactions: No Reported Reaction Past Psychological History: No Psychological Hx Reported Smoking Status: Never smoker Past Alcohol Use History: None Reported Past Drug Use History: None Reported - Past Family History Father Family Medical History: Cancer Additional Family Medical History / Comment(s): prostate Medications and Allergies Home Medications Medication Instructions Recorded Confirmed Type Ascorbic Acid [Vitamin C] 1,000 mg PO DAILY 07/30/17 09/06/20 History Losartan Potassium 50 mg PO DAILY 07/30/17 09/06/20 History Aspirin EC [Ecotrin Low Dose] 81 mg PO DAILY 09/06/20 09/06/20 History Cholecalciferol [Vitamin D3 (10 10 mcg PO DAILY 09/06/20 09/06/20 History Mcg = 400 Iu)] Dexamethasone [Decadron] 6 mg PO DAILY 09/06/20 09/06/20 History Thyroid,Pork [Field Sales Manager Thyroid] 30 mg PO DAILY 09/06/20 09/06/20 History Zinc Gluconate [Zinc] 50 mg PO DAILY 09/06/20 09/06/20 History Allergies Allergy/AdvReac Type Severity Reaction Status Date / Time cranberry Allergy Unknown Verified 09/06/20 20:58 latex Allergy Itching/JESUS Verified 09/06/20 20:58 H Penicillins Allergy Unknown Verified 09/06/20 20:58 Childhood Pepper Allergy Unknown Verified 09/06/20 20:58 radish Allergy Unknown Verified 09/06/20 20:58 tuna oil Allergy Unknown Verified 09/06/20 20:58 Milk Containing Products AdvReac "SINUS Verified 09/06/20 20:58 [Dairy] PROBLEMS" wheat AdvReac "SINUS Verified 09/06/20 20:58 PROBLEMS" Yeast AdvReac "SINUS Verified 09/06/20 20:58 PROBLEMS" Physical Exam Vitals: Vital Signs Temp Pulse Pulse Resp BP BP Pulse Ox 09/07/20 04:00 98.1 F 55 L 18 119/70 96 09/06/20 23:55 98.1 F 51 L 18 127/86 97 09/06/20 23:16 98 F 53 L 18 132/109 98 09/06/20 21:47 56 L 18 132/109 98 09/06/20 17:08 98 F 55 L 16 121/75 98 Intake and Output 09/06/20 09/07/20 09/07/20 22:59 06:59 14:59 Other: Weight 97.522 kg 95.5 kg Results 09/07/20 06:57 09/07/20 06:57 Cardiac Enzymes 09/06/20 09/06/20 09/06/20 Range/Units 19:52 19:52 22:39 AST 44 (17-59) U/L Troponin I 0.061 H* 0.089 H* (0.000-0.034) ng/mL Coagulation 09/06/20 09/06/20 09/07/20 Range/Units 19:52 22:39 06:57 PT 11.3 11.1 (9.0-12.0) sec APTT 24.9 24.4 82.2 H (22.0-30.0) sec CBC 09/06/20 09/06/20 09/07/20 Range/Units 19:58 22:39 06:57 WBC 11.4 H 9.2 9.7 (3.8-10.6) k/uL RBC 4.97 4.94 4.94 (4.30-5.90) m/uL Hgb 16.1 15.9 15.5 (13.0-17.5) gm/dL Hct 46.9 46.8 47.6 (39.0-53.0) % Plt Count 434 461 H 435 (150-450) k/uL Comprehensive Metabolic Panel 09/06/20 09/07/20 Range/Units 19:52 06:57 Sodium 132 L 134 L (137-145) mmol/L Potassium 5.9 H 5.7 H (3.5-5.1) mmol/L Chloride 101 100 (98-107) mmol/L Carbon Dioxide 26 30 (22-30) mmol/L BUN 29 H 26 H (9-20) mg/dL Creatinine 0.98 1.07 (0.66-1.25) mg/dL Glucose 117 H 78 (74-99) mg/dL Calcium 7.7 L 7.6 L (8.4-10.2) mg/dL AST 44 (17-59) U/L ALT 84 H (4-49) U/L Alkaline Phosphatase 42 (38-126) U/L Total Protein 5.9 L (6.3-8.2) g/dL Albumin 3.3 L (3.5-5.0) g/dL Current Medications Generic Name Dose Route Start Last Admin Trade Name Freq PRN Reason Stop Dose Admin Ascorbic Acid 1,000 mg 09/07/20 09:00 09/07/20 09:11 Ascorbic Acid 500 Mg Tab PO 1,000 mg DAILY DARON Administration Cholecalciferol 10 mcg 09/07/20 09:00 09/07/20 09:12 Cholecalciferol 10 Mcg (400 Iu) Tablet PO 10 mcg DAILY DARON Administration Dexamethasone 6 mg 09/07/20 09:00 09/07/20 09:12 Dexamethasone 2 Mg Tab PO 6 mg DAILY DARON Administration Famotidine 20 mg 09/07/20 09:00 09/07/20 09:12 Famotidine 20 Mg/2 Ml Vial IV 20 mg Q12HR DARON Administration Heparin Sodium (Porcine) 0 unit 09/06/20 22:23 Heparin Sodium 1,000 Un/Ml (10ml Vl) IV PER PROTOCOL PRN Low PTT Protocol Sodium Chloride 1,000 mls @ 75 mls/hr 09/06/20 21:30 09/06/20 23:11 Saline 0.9% IV 75 mls/hr .[id number] DARON Administration Heparin Sodium/Sodium Chloride 250 mls @ 10.045 mls/hr 09/06/20 22:30 09/06/20 23:09 25,000 unit/ Sodium Chloride IV 10.3 units/kg/hr .Q24H DARON 10.045 mls/hr Administration Protocol 10.3 UNITS/KG/HR Naloxone HCl 0.2 mg 09/06/20 21:17 Naloxone 0.4 Mg/Ml 1 Ml Vial IV Q2M PRN Opioid Reversal Nitroglycerin 0.4 mg 09/06/20 21:22 Nitroglycerin Sl Tabs 0.4 Mg Tab SUBLINGUAL Q5M PRN Chest Pain Thyroid 30 mg 09/07/20 09:00 09/07/20 09:12 Thyroid, Pork 30 Mg Tab PO 30 mg DAILY DARON Administration Zinc Sulfate 220 mg 09/07/20 09:00 09/07/20 09:12 Zinc Sulfate 220 Mg Cap PO 220 mg DAILY DARON Administration Intake and Output 09/06/20 09/07/20 09/07/20 22:59 06:59 14:59 Other: Weight 97.522 kg 95.5 kg 09/07/20 06:57 09/07/20 06:57
[2020-09-07] MEDS ORDERED: HEPARIN SOD,PORK IN 0.45% NACL 25,000 UNIT in 0.45% NACL 1 250ML.BAG IV SCH (12:00)
[2020-09-07] MEDS: NITROGLYCERIN OINT 1 INCH/GM PACKET TOPICAL SCH ×3 (13:25→22:57)
[2020-09-07] MEDS: SODIUM CHLORIDE 0.9% 1,000 ML IV SCH (13:26)
[2020-09-07] MEDS ORDERED: MAG HYDROX/AL HYDROX/SIMETH 30 ML, HYOSCYAMINE ELIXIR 10 ML, LIDOCAINE VISCOUS 2% 10 ML PO ONE ×3 (14:00)
--- NOTE | 2020-09-07 14:25 | P.HPIM ---
History of Present Illness Patient was a 60-year-old male came in with compensative chest pain which has been going for last couple days on and off last about 6 minutes pressure-like sensation patient pain was 10/10 in severity believes it secondary to go with nonexertional nonpleuritic not associated with food may have some slight diaphoresis today morning last episode was today morning which lasted about 6 minutes. Patient denied any fever chills was bit short of breath because of cold made. Patient is not requiring oxygen here EKG did not show any acute ST-T wave changes chest x-ray is showing findings consistent with covid 19. Patient is retired to hyperkalemic secondary to losartan being held patient is also with hypo-tensive. Patient Covid symptoms has been going on for about the 2 weeks or more. Denied any nausea vomiting diarrhea. Patient is never any fever at this time Review of Systems REVIEW OF SYSTEMS: CONSTITUTIONAL: No fever, no malaise, no fatigue. HEENT: No recent visual problems or hearing problems. Denied any sore throat. CARDIOVASCULAR: No orthopnea, PND, no palpitations, no syncope. PULMONARY: No shortness of breath, no cough, no hemoptysis. GASTROINTESTINAL: No diarrhea, no nausea, no vomiting, no abdominal pain. NEUROLOGICAL: No headaches, no weakness, no numbness. HEMATOLOGICAL: Denies any bleeding or petechiae. GENITOURINARY: Denies any burning micturition, frequency, or urgency. MUSCULOSKELETAL/RHEUMATOLOGICAL: Denies any joint pain, swelling, or any muscle pain. ENDOCRINE: Denies any polyuria or polydipsia. The rest of the 14-point review of systems is negative. Past Medical History Past Medical History: Hypertension, Skin Disorder, Thyroid Disorder Additional Past Medical History / Comment(s): hx of scoriasis History of Any Multi-Drug Resistant Organisms: None Reported Past Surgical History: Appendectomy Past Anesthesia/Blood Transfusion Reactions: No Reported Reaction Past Psychological History: No Psychological Hx Reported Smoking Status: Never smoker Past Alcohol Use History: None Reported Past Drug Use History: None Reported - Past Family History Father Family Medical History: Cancer Additional Family Medical History / Comment(s): prostate Medications and Allergies Home Medications Medication Instructions Recorded Confirmed Type Ascorbic Acid [Vitamin C] 1,000 mg PO DAILY 07/30/17 09/06/20 History Losartan Potassium 50 mg PO DAILY 07/30/17 09/06/20 History Aspirin EC [Ecotrin Low Dose] 81 mg PO DAILY 09/06/20 09/06/20 History Cholecalciferol [Vitamin D3 (10 10 mcg PO DAILY 09/06/20 09/06/20 History Mcg = 400 Iu)] Dexamethasone [Decadron] 6 mg PO DAILY 09/06/20 09/06/20 History Thyroid,Pork [Printing Sales Representative Thyroid] 30 mg PO DAILY 09/06/20 09/06/20 History Zinc Gluconate [Zinc] 50 mg PO DAILY 09/06/20 09/06/20 History Allergies Allergy/AdvReac Type Severity Reaction Status Date / Time cranberry Allergy Unknown Verified 09/06/20 20:58 latex Allergy Itching/JESUS Verified 09/06/20 20:58 H Penicillins Allergy Unknown Verified 09/06/20 20:58 Childhood Pepper Allergy Unknown Verified 09/06/20 20:58 radish Allergy Unknown Verified 09/06/20 20:58 tuna oil Allergy Unknown Verified 09/06/20 20:58 Milk Containing Products AdvReac "SINUS Verified 09/06/20 20:58 [Dairy] PROBLEMS" wheat AdvReac "SINUS Verified 09/06/20 20:58 PROBLEMS" Yeast AdvReac "SINUS Verified 09/06/20 20:58 PROBLEMS" Physical Exam Vitals: Vital Signs Temp Pulse Pulse Resp BP BP Pulse Ox 09/07/20 12:00 97.4 F L 56 L 16 107/76 96 09/07/20 08:00 97.4 F L 54 L 16 126/62 95 09/07/20 04:00 98.1 F 55 L 18 119/70 96 09/06/20 23:55 98.1 F 51 L 18 127/86 97 09/06/20 23:16 98 F 53 L 18 132/109 98 09/06/20 21:47 56 L 18 132/109 98 09/06/20 17:08 98 F 55 L 16 121/75 98 Intake and Output 09/06/20 09/07/20 09/07/20 22:59 06:59 14:59 Intake Total 1080.333 Balance 1080.333 Intake: Intake, IV Titration 600.333 Amount Heparin Sod,Pork in 0.45% 0.333 NaCl 25,000 unit In 0.45 % NaCl 1 250ml.bag @ 10. 471 UNITS/KG/HR 10 mls/hr IV .Q24H DARON Rx#: [id number] Sodium Chloride 0.9% 1, 600 000 ml @ 75 mls/hr IV . [id number] DARON Rx#:[id number] Oral 480 Other: Weight 97.522 kg 95.5 kg PHYSICAL EXAMINATION: GENERAL: The patient is alert and oriented x3, not in any acute distress. Well developed, well nourished. HEENT: Pupils are round and equally reacting to light. EOMI. No scleral icterus. No conjunctival pallor. Normocephalic, atraumatic. No pharyngeal erythema. No thyromegaly. CARDIOVASCULAR: S1 and S2 present. No murmurs, rubs, or gallops. PULMONARY: Chest is clear to auscultation, no wheezing or crackles. ABDOMEN: Soft, nontender, nondistended, normoactive bowel sounds. No palpable organomegaly. MUSCULOSKELETAL: No joint swelling or deformity. EXTREMITIES: No cyanosis, clubbing, or pedal edema. NEUROLOGICAL: Gross neurological examination did not reveal any focal deficits. SKIN: No rashes. Results CBC & Chem 7: 09/07/20 06:57 09/07/20 06:57 Labs: Abnormal Lab Results - Last 24 Hours (Table) 09/06/20 09/06/20 09/06/20 Range/Units 19:52 19:52 19:58 WBC 11.4 H (3.8-10.6) k/uL Plt Count (150-450) k/uL Neutrophils # 10.4 H (1.3-7.7) k/uL Lymphocytes # 0.3 L (1.0-4.8) k/uL APTT (22.0-30.0) sec Sodium 132 L (137-145) mmol/L Potassium 5.9 H (3.5-5.1) mmol/L BUN 29 H (9-20) mg/dL Glucose 117 H (74-99) mg/dL Calcium 7.7 L (8.4-10.2) mg/dL Magnesium 2.4 H (1.6-2.3) mg/dL ALT 84 H (4-49) U/L Troponin I 0.061 H* (0.000-0.034) ng/mL Total Protein 5.9 L (6.3-8.2) g/dL Albumin 3.3 L (3.5-5.0) g/dL Coronavirus (PCR) (Not Detectd) 09/06/20 09/06/20 09/06/20 Range/Units 21:32 22:39 22:39 WBC (3.8-10.6) k/uL Plt Count 461 H (150-450) k/uL Neutrophils # 8.5 H (1.3-7.7) k/uL Lymphocytes # 0.3 L (1.0-4.8) k/uL APTT (22.0-30.0) sec Sodium (137-145) mmol/L Potassium (3.5-5.1) mmol/L BUN (9-20) mg/dL Glucose (74-99) mg/dL Calcium (8.4-10.2) mg/dL Magnesium (1.6-2.3) mg/dL ALT (4-49) U/L Troponin I 0.089 H* (0.000-0.034) ng/mL Total Protein (6.3-8.2) g/dL Albumin (3.5-5.0) g/dL Coronavirus (PCR) Detected A (Not Detectd) 09/07/20 09/07/20 09/07/20 Range/Units 06:57 06:57 06:57 WBC (3.8-10.6) k/uL Plt Count (150-450) k/uL Neutrophils # 8.3 H (1.3-7.7) k/uL Lymphocytes # 0.6 L (1.0-4.8) k/uL APTT (22.0-30.0) sec Sodium 134 L (137-145) mmol/L Potassium 5.7 H (3.5-5.1) mmol/L BUN 26 H (9-20) mg/dL Glucose (74-99) mg/dL Calcium 7.6 L (8.4-10.2) mg/dL Magnesium (1.6-2.3) mg/dL ALT (4-49) U/L Troponin I 0.057 H* (0.000-0.034) ng/mL Total Protein (6.3-8.2) g/dL Albumin (3.5-5.0) g/dL Coronavirus (PCR) (Not Detectd) 09/07/20 Range/Units 06:57 WBC (3.8-10.6) k/uL Plt Count (150-450) k/uL Neutrophils # (1.3-7.7) k/uL Lymphocytes # (1.0-4.8) k/uL APTT 82.2 H (22.0-30.0) sec Sodium (137-145) mmol/L Potassium (3.5-5.1) mmol/L BUN (9-20) mg/dL Glucose (74-99) mg/dL Calcium (8.4-10.2) mg/dL Magnesium (1.6-2.3) mg/dL ALT (4-49) U/L Troponin I (0.000-0.034) ng/mL Total Protein (6.3-8.2) g/dL Albumin (3.5-5.0) g/dL Coronavirus (PCR) (Not Detectd) Assessment and Plan Plan: -Chest pain: Patient does have mildly elevated troponins although this troponin elevation is believed to be secondary to infection and inflammation from Covid. Cardiology evaluated the patient patient can use to be on heparin the recommending to give the patient on heparin no further chronic intervention is being planned at this time -Covid 19 infection: Patient is not hypoxic will not require any systemic steroids patient was started on Covid vitamins -Hypokalemia: Seconded losartan which will be held patient will continue with IV fluids Hypovolemic hyponatremia: Secondary to sepsis continue with IV fluids -Hypertension -Hypothyroidism DVT prophylaxis prophylaxis: Patient is on IV heparin for elevated troponins
[2020-09-07] MEDS: HEPARIN SODIUM,PORCINE/PF 5,000 UNIT/0.5 ML SYRINGE SQ SCH ×2 (14:38→22:53)
[2020-09-08] MEDS: SODIUM CHLORIDE 0.9% 1,000 ML IV SCH (04:23)
[2020-09-08] MEDS: CHOLECALCIFEROL 10 MCG (400 IU) TABLET PO SCH (09:07)
[2020-09-08] MEDS: THYROID, PORK 30 MG TAB PO SCH (09:07)
[2020-09-08] MEDS: ASCORBIC ACID 500 MG TAB PO SCH (09:07)
[2020-09-08] MEDS: ZINC SULFATE 220 MG CAP PO SCH (09:07)
[2020-09-08] MEDS: dexAMETHasone 2 MG TAB PO SCH (09:07)
[2020-09-08] MEDS: FAMOTIDINE 20 MG/2 ML VIAL IV SCH (09:08)
[2020-09-08] MEDS: HEPARIN SODIUM,PORCINE/PF 5,000 UNIT/0.5 ML SYRINGE SQ SCH (09:09)
[2020-09-08] MEDS: NITROGLYCERIN OINT 1 INCH/GM PACKET TOPICAL SCH (09:35)
[2020-09-08 09:39] VITALS: RESP 16; TEMP 97.9
--- NOTE | 2020-09-08 11:04 | P.PN ---
Subjective Progress Note Date: 09/08/20 CHIEF COMPLAINT: Chest pain HISTORY OF PRESENT ILLNESS: 09/07/2020 This is a 60 year old male with a past medical history significant for hypertension and hypothyroidism. We have been asked to see the patient in consultation for chest pain. Patient presented to the hospital with a chief complaint of multiple bouts of chest pain that last for 10-15 minutes. He was found to be positive for Covid 19. Patient was admitted to the hospital for further evaluation. He was placed on IV heparin. He is on room air with oxygen saturations greater than 92%. Telemetry reveals sinus bradycardia with heart rate in the 50s. He is afebrile. Blood pressure 119/70. EKG reveals sinus bradycardia with no acute ischemic changes. Chest xray peripheral pulmonary infiltrates. These appear slightly worse than recent exam. No heart failure. Laboratory data: WBC 9.7. Hemoglobin 15.5. Platelet count 435. Sodium 134. Potassium 5.7. BUN 26. Creatinine 1.07. Troponin 0.061. 0.089. 0.057 Current home cardiac medications include losartan 50 mg daily Echocardiogram completed in 2018 revealed ejection fraction 55-60%, mild mitral regurgitation, and mild tricuspid regurgitation. 09/08/2020 Patient received a GI cocktail yesterday afternoon and nursing states the sunil bradley has had no further episodes of chest discomfort. The patient is requesting to be discharged home today. He is on room air with oxygen saturations greater than 92%. Blood pressure 96/59. Heart rate in the 60s. He is afebrile. PHYSICAL EXAM: Thorough physical exam not completed secondary to limited evaluation/examination and due to Covid19 ASSESSMENT: Covid 19 Chest pain, secondary to above Abnormal troponins, not suggestive of myocardial injury, likely secondary to Covid Hyperkalemia Hypertension Hypothyroidism PLAN: Continue telemetry monitoring Discontinue IV heparin. Discontinue nitro paste Begin aspirin and metoprolol Dr. Foreman received echocardiogram which revealed preserved LV function with no LV wall abnormalities. The patient may be discharged home today and follow-up outpatient. He will require outpatient stress testing. Nurse practitioner note has been reviewed by physician. Signing provider agrees with the documented findings, assessment, and plan of care. Objective - Vital Signs Vital signs: Vital Signs Temp 97.9 F 09/08/20 08:00 Pulse 60 09/08/20 08:00 Resp 16 09/08/20 08:00 BP 96/59 09/08/20 08:00 Pulse Ox 96 09/08/20 08:00 Intake & Output 09/07/20 09/08/20 09/08/20 18:59 06:59 18:59 Intake Total 1320.333 0 300 Balance 1320.333 0 300 Intake: Intake, IV Titration 600.333 Amount Heparin Sod,Pork in 0.45% 0.333 NaCl 25,000 unit In 0.45 % NaCl 1 250ml.bag @ 10. 471 UNITS/KG/HR 10 mls/hr IV .Q24H DARON Rx#: [id number] Sodium Chloride 0.9% 1, 600 000 ml @ 75 mls/hr IV . [id number] DARON Rx#:[id number] Oral 720 0 300 Other: # Voids 2 - Labs CBC & Chem 7: 09/07/20 06:57 09/07/20 06:57 Labs: Abnormal Lab Results - Last 24 Hours (Table) 09/07/20 09/08/20 Range/Units 18:14 07:15 APTT 53.8 H 69.4 H (22.0-30.0) sec
[2020-09-08 11:42] VITALS: BP 101/74; PULSE 62
[2020-09-08] MEDS ORDERED: SODIUM POLYSTYRENE SULFONATE 15 GM/60 ML BOTTLE PO STA (13:47)
--- NOTE | 2020-09-08 15:23 | P.DS ---
Providers Date of admission: 09/06/20 21:14 Attending physician: Sudeep Dias MD Consults: 09/06/20 21:17 Consult Physician Stat Consulting Provider: Margy Hyde Consult Reason/Comments: Chest pain elevated troponin Do you want consulting provider notified?: Yes Primary care physician: Torin [facility] Course: Patient was a 60-year-old male came in with compensative chest pain which has been going for last couple days on and off last about 6 minutes pressure-like sensation patient pain was 10/10 in severity believes it secondary to go with nonexertional nonpleuritic not associated with food may have some slight diaphoresis today morning last episode was today morning which lasted about 6 minutes. Patient denied any fever chills was bit short of breath because of cold made. Patient is not requiring oxygen here EKG did not show any acute ST-T wave changes chest x-ray is showing findings consistent with covid 19. Patient is retired to hyperkalemic secondary to losartan being held patient is also with hypo-tensive. Patient Covid symptoms has been going on for about the 2 weeks or more. Denied any nausea vomiting diarrhea. Patient is never any fever at this time. 09/08/2020 Patient is clinically doing well wanted to be discharged. Cardiology believes his chest pain is related to gastroesophageal reflux disease patient will be given prescription for Prilosec for 14 days patient is hypotensive as well as hyperkalemic because of which losartan is being discontinued patient will follow with PCP closely as an outpatient patient will be discharged patient will follow with cardiology as an outpatient. PHYSICAL EXAMINATION: GENERAL: The patient is alert and oriented x3, not in any acute distress. Well developed, well nourished. HEENT: Pupils are round and equally reacting to light. EOMI. No scleral icterus. No conjunctival pallor. Normocephalic, atraumatic. No pharyngeal erythema. No thyromegaly. CARDIOVASCULAR: S1 and S2 present. No murmurs, rubs, or gallops. PULMONARY: Chest is clear to auscultation, no wheezing or crackles. ABDOMEN: Soft, nontender, nondistended, normoactive bowel sounds. No palpable organomegaly. MUSCULOSKELETAL: No joint swelling or deformity. EXTREMITIES: No cyanosis, clubbing, or pedal edema. NEUROLOGICAL: Gross neurological examination did not reveal any focal deficits. SKIN: No rashes. Assessment and Plan Plan: -Chest pain: Patient does have mildly elevated troponins although this troponin elevation is believed to be secondary to infection and inflammation from Covid. Cardiology evaluated the patient , not recommending any further intervention at this time patient was on heparin for 2 days. Patient the chest pain is probably related to gastroesophageal reflux disease -Covid 19 infection: Patient is not hypoxic will not require any systemic steroids. -Hypokalemia: Secondary to losartan which was discontinued Hypovolemic hyponatremia: Secondary to sepsis continue , received IV fluids -Hypertension -Hypothyroidism Patient Condition at Discharge: Stable Plan - Discharge Summary Discharge Rx Participant: No New Discharge Prescriptions: New Omeprazole [PriLOSEC] 40 mg PO AC-BRKFST #14 capsule. Discontinued Losartan Potassium 50 mg PO DAILY No Action Ascorbic Acid [Vitamin C] 1,000 mg PO DAILY Zinc Gluconate [Zinc] 50 mg PO DAILY Aspirin EC [Ecotrin Low Dose] 81 mg PO DAILY Cholecalciferol [Vitamin D3 (10 Mcg = 400 Iu)] 10 mcg PO DAILY Dexamethasone [Decadron] 6 mg PO DAILY Thyroid,Pork [Director Of Application Development Thyroid] 30 mg PO DAILY Discharge Medication List Ascorbic Acid [Vitamin C] 1,000 mg PO DAILY 07/30/17 [History] Aspirin EC [Ecotrin Low Dose] 81 mg PO DAILY 09/06/20 [History] Cholecalciferol [Vitamin D3 (10 Mcg = 400 Iu)] 10 mcg PO DAILY 09/06/20 [History] Dexamethasone [Decadron] 6 mg PO DAILY 09/06/20 [History] Thyroid,Pork [Director Of Application Development Thyroid] 30 mg PO DAILY 09/06/20 [History] Zinc Gluconate [Zinc] 50 mg PO DAILY 09/06/20 [History] Omeprazole [PriLOSEC] 40 mg PO AC-BRKFST #14 capsule. 09/08/20 [Rx] Follow up Appointment(s)/Referral(s): Torin Washington DO [Primary Care Provider] - 3 Days Josef Foreman MD [STAFF PHYSICIAN] - 2 Weeks (call office to make f/u appt) Patient Instructions/Handouts: Coronavirus Disease 2019 (COVID-19), Gastroesophageal Reflux Disease (DC) Discharge Disposition: HOME SELF-CARE
[2020-09-09] MEDS ORDERED: METOPROLOL SUCCINATE (ER) 25 MG TAB.ER.24H PO SCH (09:00)
[2020-09-09] MEDS ORDERED: ASPIRIN 81 MG PO SCH (09:00)
== END 2020-09-08 14:33 | disposition home or self-care (01) ==
LOC: EC 16:14 → 3SCARD 21:14
PROVIDERS: ADMIT Internal Medicine; ATTEND Internal Medicine
DX: U07.1 COVID-19 (principal); A41.89 Other specified sepsis; R07.89 Other chest pain; R79.89 Other specified abnormal findings of blood chemistry; E87.5 Hyperkalemia; T46.5X5A Adverse effect of other antihypertensive drugs, initial encounter; E03.9 Hypothyroidism, unspecified; I10 Essential (primary) hypertension; I08.1 Rheumatic disorders of both mitral and tricuspid valves; L98.9 Disorder of the skin and subcutaneous tissue, unspecified; I95.9 Hypotension, unspecified; E86.1 Hypovolemia; E87.1 Hypo-osmolality and hyponatremia; Z79.82 Long term (current) use of aspirin; Z79.52 Long term (current) use of systemic steroids; Z79.890 Hormone replacement therapy; Z79.899 Other long term (current) drug therapy; Z91.040 Latex allergy status; Z88.0 Allergy status to penicillin; Z91.018 Allergy to other foods; Z91.011 Allergy to milk products; Z90.49 Acquired absence of other specified parts of digestive tract; Z80.42 Family history of malignant neoplasm of prostate
CPT/HCPCS: 96376 ×3; 96366 ×2; 96372; 96375 ×2; 93005 ×2; 96365; 99285; 36415; 93306; 80053; 80048; 83735; 84484 ×2; 85025 ×2; 85610; 85730 ×3; 87635; 71046; G0378 ×3; J1940; J1644 ×4; J8540 ×2; Q9950

== ENCOUNTER → 2020-11-12 | Outpatient (CLI) | payer BC ==
--- NOTE | 2020-11-12 13:43 | XR ---
EXAMINATION TYPE: XR chest 2V DATE OF EXAM: 11/12/2020 COMPARISON: 09/06/2020 HISTORY: 60-year-old male J1 2.82, follow-up coronary virus pneumonia. TECHNIQUE: Frontal and lateral views FINDINGS: Slightly low lung volumes. Heart borderline enlarged. Patchy interstitial changes in the periphery of the left abdomen right lung. Aeration is improved from prior exam. No pleural effusion. IMPRESSION: 1. Borderline heart size. 2. Patchy interstitial changes in the periphery of the lungs, left greater than right. Aeration has i mproved compared to 09/06/2020. Postinfectious scarring is a consideration.
== END | disposition home or self-care (01) ==
LOC: RADXRMAIN 12:14
PROVIDERS: ATTEND Internal Medicine Sleep Medicine
DX: U07.1 COVID-19 (principal); J12.82 Pneumonia due to coronavirus disease 2019
CPT/HCPCS: 71046

== ENCOUNTER → 2021-08-01 | Outpatient (CLI) | payer BC ==
--- NOTE | 2021-08-01 12:49 | CT ---
EXAMINATION TYPE: CT chest w con DATE OF EXAM: 08/01/2021 COMPARISON: CT dated 03/31/2018 and x-ray dated 11/12/2020 HISTORY: Atelectasis, aortic aneurysm CT DLP: 650 mGycm Automated exposure control for dose reduction was used. TECHNIQUE: CT scan of the chest is performed with IV Contrast, patient injected with 100 ml mL of Isovue 300. M IP Images are created on CT scanner and reviewed. 3D reconstructed images are created on an Field Agent workstation and reviewed. FINDINGS: Bilateral peripheral pulmonary reticulations, mild to moderate fibrotic changes and scarring, most ev ident involving the upper to mid lung zones. This could represent sequela of previous infection with postinfection scarring as these findings were not appreciated in 2018 CT scan. 2 cm irregular infiltration is seen at the posterolateral aspect of the right upper lobe, likely repr esenting a scar tissue, attention on follow-up. Unremarkable remainder of the lungs. Patent central a irways. No pleural or pericardial effusion. No gross cardiomegaly. No pulmonary artery dilatation. The ascending aorta measures 3.9 cm. No significant atherosclerotic c alcifications. No pathologically enlarged lymph nodes in the chest. Small sliding hiatal hernia. [place] jen diverticulosis in the upper abdomen. Degenerative changes of the lower thoracic spine. IMPRESSION: The described bilateral pulmonary changes could be related to postinfectious scarring, not appreciate d in 2018 CT scan. The described 2 cm irregular infiltration in the right upper lobe could also repre sent a scar tissue. Recommend precautionary follow-up CT scan in 6 months for reassessment. The ascen ding aorta measures 3.9 cm. Other incidental findings as described above.
== END | disposition home or self-care (01) ==
LOC: RADCTMAIN 08:16
PROVIDERS: ATTEND Internal Medicine Sleep Medicine
DX: I71.9 Aortic aneurysm of unspecified site, without rupture (principal); J98.11 Atelectasis
CPT/HCPCS: 71260; Q9967

== ENCOUNTER 2021-08-02 02:20 | Emergency (ER) | payer BC ==
[2021-08-02 02:40] VITALS: TEMP 98
[2021-08-02] MEDS ORDERED: HYDROmorphone 1 MG/ML 1 ML SYRINGE IM STA (02:55)
--- NOTE | 2021-08-02 03:42 | XR ---
EXAMINATION TYPE: XR chest 1V DATE OF EXAM: 08/02/2021 COMPARISON: NONE HISTORY: 11/12/2020 TECHNIQUE: Single view FINDINGS: There is no heart failure or confluent pneumonic infiltrate. Costophrenic angles are fairly clear. Bony thorax is intact. IMPRESSION: No active cardiopulmonary disease. There is clearing of the peripheral lateral infiltrate in the left lung compared to the old exam.
--- NOTE | 2021-08-02 03:45 | ED ---
Fall HPI - General Chief Complaint: Fall Stated Complaint: Fall, right shoulder injury, right leg injury Time Seen by Provider: 08/02/21 02:34 Source: patient, RN notes reviewed, old records reviewed Mode of arrival: ambulatory Limitations: no limitations - History of Present Illness Initial Comments: This is a 61-year-old male DF for evaluation. Patient presents today for evaluation of fall. Patient fell just prior to arrival had difficulty getting up right hip pain right leg pain mainly right shoulder pain and right arm pain. Follows mechanical trip and fall patient patient fell on some ice this morning. 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 Witnessed: yes, by family Place Fall Occurred: home Loss of Consciousness: none Prolonged Down Time?: no Symptoms Prior to Fall: none Location - Extremities: Right: Shoulder Severity: severe Severity scale (1-10): 10 Quality: sharp, aching Context: tripped/slipped Associated Symptoms: denies - Related Data Home Medications Medication Instructions Recorded Confirmed Ascorbic Acid [Vitamin C] 1,000 mg PO DAILY 07/30/17 09/06/20 Aspirin EC [Ecotrin Low Dose] 81 mg PO DAILY 09/06/20 09/06/20 Cholecalciferol [Vitamin D3 (10 10 mcg PO DAILY 09/06/20 09/06/20 Mcg = 400 Iu)] Dexamethasone [Decadron] 6 mg PO DAILY 09/06/20 09/06/20 Thyroid,Pork [Plan Coordinator Thyroid] 30 mg PO DAILY 09/06/20 09/06/20 Zinc Gluconate [Zinc] 50 mg PO DAILY 09/06/20 09/06/20 Previous Rx's Medication Instructions Recorded Omeprazole [PriLOSEC] 40 mg PO ERIKA-BRKFST #14 capsule. 09/08/20 Allergies Allergy/AdvReac Type Severity Reaction Status Date / Time cranberry Allergy Unknown Verified 08/02/21 02:40 latex Allergy Itching/JESUS Verified 08/02/21 02:40 H Penicillins Allergy Unknown Verified 08/02/21 02:40 Childhood Pepper Allergy Unknown Verified 08/02/21 02:40 radish Allergy Unknown Verified 08/02/21 02:40 tuna oil Allergy Unknown Verified 08/02/21 02:40 Milk Containing Products AdvReac "SINUS Verified 08/02/21 02:40 [Dairy] PROBLEMS" naproxen [From Naprosyn] AdvReac Unknown Verified 08/02/21 02:40 wheat AdvReac "SINUS Verified 08/02/21 02:40 PROBLEMS" Yeast AdvReac "SINUS Verified 08/02/21 02:40 PROBLEMS" Review of Systems ROS Statement: Those systems with pertinent positive or pertinent negative responses have been documented in the HPI. ROS Other: All systems not noted in ROS Statement are negative. Past Medical History Past Medical History: Hypertension, Skin Disorder, Thyroid Disorder Additional Past Medical History / Comment(s): hx of scoriasis History of Any Multi-Drug Resistant Organisms: None Reported Past Surgical History: Appendectomy Past Anesthesia/Blood Transfusion Reactions: No Reported Reaction Past Psychological History: No Psychological Hx Reported Smoking Status: Never smoker Past Alcohol Use History: None Reported Past Drug Use History: None Reported - Past Family History Father Family Medical History: Cancer Additional Family Medical History / Comment(s): prostate General Exam Limitations: no limitations General appearance: alert, in no apparent distress Head exam: Present: atraumatic, normocephalic, normal inspection Eye exam: Present: normal appearance, PERRL, EOMI. Absent: scleral icterus, conjunctival injection, periorbital swelling ENT exam: Present: normal exam, mucous membranes moist Neck exam: Present: normal inspection. Absent: tenderness, meningismus, lymphadenopathy Respiratory exam: Present: normal lung sounds bilaterally. Absent: respiratory distress, wheezes, rales, rhonchi, stridor Cardiovascular Exam: Present: normal rhythm, tachycardia, normal heart sounds. Absent: systolic murmur, diastolic murmur, rubs, gallop, clicks GI/Abdominal exam: Present: soft, normal bowel sounds. Absent: distended, tenderness, guarding, rebound, rigid Extremities exam: Present: normal inspection, normal capillary refill, other (Patient does have deformity of right shoulder). Absent: full ROM (Unable to move right arm), tenderness, pedal edema, joint swelling, calf tenderness Back exam: Present: normal inspection Neurological exam: Present: alert, oriented X3, CN II-XII intact Psychiatric exam: Present: normal affect, normal mood Skin exam: Present: warm, dry, intact, normal color. Absent: rash Course Vital Signs 02/26/22 02/26/22 02/26/22 02:35 05:07 05:30 Temperature 98 F Pulse Rate 103 H 70 62 Respiratory 22 13 13 Rate Blood Pressure 178/71 178/101 137/83 O2 Sat by Pulse 97 100 99 Oximetry 08/02/21 08/02/21 05:41 05:52 Temperature Pulse Rate 62 62 Respiratory 15 15 Rate Blood Pressure 135/85 135/87 O2 Sat by Pulse 100 99 Oximetry - Reevaluation(s) Reevaluation #1: 08/02/21 06:09 Medical record is reviewed Reevaluation #2: 08/02/21 06:09 Patient shoulder reduced here in the ER without difficulty Reevaluation #3: 08/02/21 06:09 Patient informed results and questions answered Procedures - Orthopedic Joint Reduction Joint #1 Consent Obtained: verbal consent Side: right Joint Reduction Location: shoulder Analgesia: procedural sedation Shoulder Technique Used (if applicable): traction/counter-traction, external rotation Post-Reduction Neuro Exam: intact Post-Reduction Vascular Exam: intact Post Reduction X-Ray Obtained: Yes Post Reduction X-Ray Results: reduced Splint Applied: Yes Patient Tolerated Procedure: well - Procedural Sedation Procedural Sedation Start Time: 05:00 Procedural Sedation Stop Time: 05:35 Indications: fracture/dislocation reduction ASA Class: III Mallampati Airway Score: 3 Preparation: security monitor applied, pulse oximeter, capnometry used IV Propofol Dose (mgs): 150 Complications: none Interventions: oxygen applied Patient Tolerated Procedure: well Medical Decision Making - Medical Decision Making 58 female to the emergency department for with a fall. Fall with right shoulder dislocation, shoulder reduced here in the ER without difficulty patient's pain is resolved and he can be discharged home - Radiology Data Radiology results: report reviewed (X-ray shoulder initial symptoms dislocation, second x-ray does show positive reduction), image reviewed Disposition Clinical Impression: Fall, Dislocation of right shoulder joint Disposition: HOME SELF-CARE Condition: Good Instructions (If sedation given, give patient instructions): Shoulder Dislocation (ED), Moderate Sedation (ED) Is patient prescribed a controlled substance at d/c from ED?: No Referrals: Torin Washington DO [Primary Care Provider] - 1-2 days
--- NOTE | 2021-08-02 03:45 | XR ---
EXAMINATION TYPE: XR shoulder complete RT DATE OF EXAM: 08/02/2021 COMPARISON: NONE HISTORY: Fall. Shoulder pain TECHNIQUE: 2 views FINDINGS: There is anterior dislocation of the glenohumeral joint. I see no fracture. AC joint is int act. IMPRESSION: Anterior shoulder joint dislocation.
--- NOTE | 2021-08-02 03:47 | XR ---
EXAMINATION TYPE: XR Hip RT and AP Pelvis DATE OF EXAM: 08/02/2021 COMPARISON: NONE HISTORY: Fall. Hip pain TECHNIQUE: 3 views FINDINGS: Pelvic ring is intact. Proximal right femur and hip joint are intact. Sacroiliac joints are intact and joint spaces are normal. IMPRESSION: Negative pelvis and right hip exam. No fracture.
[2021-08-02] MEDS ORDERED: SODIUM CHLORIDE 0.9% 1,000 ML IV STA (03:56)
[2021-08-02] MEDS ORDERED: PROPOFOL 10 MG/ML 20 ML VIAL IV ONE (03:56)
[2021-08-02 05:38] VITALS: PULSE 62
[2021-08-02 05:43] VITALS: RESP 15
[2021-08-02 05:53] VITALS: BP 135/87
--- NOTE | 2021-08-02 06:21 | XR ---
EXAM: XR Right Shoulder Complete, 1 View CLINICAL HISTORY: ITS.REASON XR Reason: reduction TECHNIQUE: One view of the right shoulder. COMPARISON: Shoulder x-rays of 08/02/2021 at 0340 hrs. FINDINGS: Bones/joints: Interval reduction of the anterior inferior right shoulder dislocation with no evidence of a fracture. Soft tissues: Unremarkable. IMPRESSION: Interval reduction of the anterior inferior right shoulder dislocation with no evidence of a fracture.
== END 2021-08-02 06:46 | disposition home or self-care (01) ==
LOC: EC 02:20
DX: S43.004A Unspecified dislocation of right shoulder joint, initial encounter (principal); I10 Essential (primary) hypertension; Z91.040 Latex allergy status; Z88.0 Allergy status to penicillin; Z91.018 Allergy to other foods; Z91.011 Allergy to milk products; W19.XXXA Unspecified fall, initial encounter
CPT/HCPCS: 23650 ×2; 99284 ×2; 96372 ×2; 96361 ×2; 96374 ×2; 73502; 73020; 73030; 71045; J1170; J2704

== ENCOUNTER → 2021-10-17 | Outpatient (CLI) | payer BC ==
--- NOTE | 2021-10-18 02:01 | MR ---
EXAMINATION TYPE: MR shoulder RT wo con DATE OF EXAM: 10/17/2021 COMPARISON: None HISTORY: Right shoulder pain since 08-02-21 due to fall on ice. Multiplanar multiecho imaging of the right shoulder without contrast. There is shoulder joint effusion. There is subdeltoid effusion. There is spurring at the AC joint. Th ere is mild subacromial impingement. There is increased signal in the supraspinatus tendon near the g reater tuberosity of the humerus. There is small full-thickness tear. There is no retraction. The subscapularis tendon is intact. Biceps tendon is intact. Glenoid labrum appear intact. No evidenc e of fracture. There is moderate fluid at the AC joint. impression Shoulder joint effusion and subdeltoid effusion consistent with synovitis. Small full-thickness tear of the supraspinatus tendon. Arthritic changes at the AC joint. No fracture.
== END | disposition home or self-care (01) ==
LOC: RADMRIMAIN 19:11
PROVIDERS: ATTEND Orthopaedic Surgery
DX: M75.121 Complete rotator cuff tear or rupture of right shoulder, not specified as traumatic (principal); M25.411 Effusion, right shoulder

== ENCOUNTER 2021-12-11 07:35 | Day surgery (SDC) | payer BC ==
--- NOTE | 2021-12-10 14:29 | HP ---
HISTORY AND PHYSICAL REASON FOR ADMISSION: Surgery 12/11/2021 HISTORY OF PRESENT ILLNESS: Laci Pastor is a 61-year-old gentleman seen with progressive right shoulder pain. We discussed options regarding treatment. He elected to proceed with right shoulder arthroscopy. Consent obtained. PAST MEDICAL HISTORY: Hypertension, hypothyroidism. PAST SURGICAL HISTORY: Appendectomy, left shoulder arthroscopy. DAILY MEDICATIONS: Ibuprofen, levothyroxine, losartan. ALLERGIES: PENICILLIN, NAPROSYN. SOCIAL HISTORY: Denies tobacco use. PHYSICAL EVALUATION OF THE RIGHT SHOULDER: Flexion is 140 degrees, abduction 120 degrees. External rotation is 30 degrees with significant weakness, tenderness along the anterior lateral acromion rotator cuff insertion site. Impingement sign is positive at 90 degrees. Drop-arm sign is positive. Distal neurovascular exam is intact. RADIOGRAPHS: Radiographs of the right shoulder revealed a type 2 acromion, cystic changes of the greater tuberosity. MRI right shoulder revealed a rotator cuff tendon tear, acromioclavicular joint osteoarthritis and effusion. IMPRESSION: 1. Right shoulder impingement with rotator cuff tear. 2. Right shoulder acromioclavicular joint osteoarthritis. 3. Hypertension. 4. Hypothyroidism. PLAN: Right shoulder arthroscopy, subacromial decompression, arthroscopic rotator cuff repair, possible Cristela procedure and debridement. Surgery is 12/11/2021. MMODL / IJN: [id number] /
[~2021-12-11 07:35] MED LIST: DEXAMETHASONE SOD PHOSPHATE 4 MG/ML 1 ML VIAL IV ONE; HYDROmorphone 0.5 MG/0.5 ML SYRINGE IVP PRN; LACTATED RINGERS 1,000 ML IV SCH; MIDAZOLAM 2 MG/2 ML VIAL IV PRN; ONDANSETRON 4 MG/2 ML VIAL IVP ONE
[2021-12-11] MEDS ORDERED: fentaNYL (PF) 50 MCG/ML 2 ML AMP IVP ONE (08:46)
[2021-12-11] MEDS ORDERED: MIDAZOLAM 2 MG/2 ML VIAL IVP ONE (08:46)
[2021-12-11] MEDS ORDERED: ePHEDrine 50 MG/ML 1 ML VIAL ONE (09:42)
[2021-12-11] MEDS ORDERED: MIDAZOLAM 2 MG/2 ML VIAL ONE (09:42)
[2021-12-11] MEDS ORDERED: LIDOCAINE 2% INJ 20 MG/ML (2 ML VIAL) ONE (09:42)
[2021-12-11] MEDS ORDERED: GLYCOPYRROLATE 0.2 MG/ML 2 ML VIAL ONE (09:42)
[2021-12-11] MEDS ORDERED: PROPOFOL 10 MG/ML 20 ML VIAL IV ONE (09:42)
[2021-12-11] MEDS ORDERED: SUCCINYLCHOLINE CHLORIDE VIAL 200 MG/10 ML VIAL IV ONE (09:42)
[2021-12-11] MEDS ORDERED: PHENYLEPHRINE-0.9% NACL SYG 1,000 MCG/10 ML SYRINGE ONE (09:42)
[2021-12-11] MEDS ORDERED: ROPIVACAINE 5 MG/ML 30 ML VIAL ONE (09:42)
--- NOTE | 2021-12-11 11:24 | P.OP ---
Date of Procedure: 12/11/21 Preoperative Diagnosis: Right shoulder impingement Postoperative Diagnosis: 1. Right shoulder rotator cuff tear 2. Right shoulder impingement Procedure(s) Performed: 1. Right shoulder arthroscopic rotator cuff repair 2. Right shoulder arthroscopic subacromial decompression Implants: 15.5 Arthrex swivel lock anchor Anesthesia: GETA, regional (Interscalene block) Surgeon: [facility] Business Banking Sales Assistant #1: Christiano Hurt Estimated Blood Loss (ml): 10 Pathology: none sent Condition: stable Disposition: PACU Indications for Procedure: 61-year-old gentleman seen with progressive right shoulder pain. After treatment options were discussed, he elected to proceed with arthroscopy. Operative Findings: See description of procedure Description of Procedure: Patient underwent an interscalene block by department of anesthesia. The patient was then taken to the operative suite. The patient underwent a general anesthetic by the department of anesthesia. The patient was placed into a lateral position and secured. There was appropriate padding of the bony prominence. Right shoulder was then prepped and draped in normal sterile orthopedic fashion. We placed the extremity in 10 pounds of longitudinal traction. A posterior incision was now made for a posterior working portal site. The trocar and cannula were inserted into the glenohumeral joint. Arthroscopy was initiated. Spinal needle was now inserted anteriorly, to ascertain the anterior working portal site. An incision was now made in that area, a trocar was inserted followed by a probe. There was some mild superficial fraying of the superior labrum. The biceps was stable. The remaining labrum appeared stable. There were some grade 1 chondromalacia changes about the glenohumeral joint without any significant tearing present. I used a motorized shaver and debrided the superficial fraying of the superior labrum. Residual labrum was probed and was found to be stable. At this point instruments removed from glenohumeral joint. Utilizing the posterior working portal site, the trocar and cannula were inserted into the subacromial space. Arthroscopy initiated. I made an incision 2 fingerbreadths lateral to the acromion. I introduced my trocar followed by my ArthroCare ablator. I now began ablating thick subacromial bursal tissue, which exposed the undersurface of the anterior acromion. There was diminished subacromial space. There was a very prominent anterior acromion. A motorized bur was introduced and a subacromial decompression was performed. I also excised some osteophytes off the inferior aspect of the distal clavicle. The AC joint was visualized and noted to be moderately arthritic. I did not think enough toward a Cristela procedure. I turned my attention to the rotator cuff tendon. There was an obvious full-thickness tear along the distal supraspinatus tendon measuring about a 1 cm. I debrided the margins getting down to stable tendon tissue. The defect measured 1.5 cm and was freely mobile over the footprint. I abraded the footprint with a motorized bur. With the assistance of Jovany BANEGAS I passed 2 everted mattress sutures through good bites of rotator cuff tendon. I now punched hole and the footprint area for insertion of an anchor. All 4 limbs of suture were passed through the eyelet of a 5.5 Arthrex swivel lock anchor. I placed the eyelet into the pre-punched hole. I held it in position while Jovany BANEGAS tensioned all 4 suture limbs and deployed the anchor with good fixation noted. All residual suture limbs were now clipped. We had good compression of the tendon along the entire footprint. Instruments now removed from the portal sites. All portal sites were approximated with nylon suture. Sterile dressings were applied followed by a shoulder sling. Jovany BANEGAS assisted in this case. The patient was awakened, transferred to a bed, and taken to recovery in stable condition.
[2021-12-11 11:25] VITALS: TEMP 97
--- NOTE | 2021-12-11 12:37 | P.ANPRN ---
Procedure Note - Anesthesia - Nerve Block Performed Right Interscalene Single Time Out Performed: Yes ([id number]) Date of Procedure: 12/11/21 Procedure Start Time: 08:45 Procedure Stop Time: 08:49 Location of Patient: PreOp Indication: Acute Post-Operative Pain, Requested by Surgeon Specifically requested for management of pain by DrJonh: [facility] Sedation Type: Sedate with meaningful contact maintained Preparation: Sterile Prep Position: Supine Catheter: None Needle Types: Pajunk Needle Gauge: 21 Ultrasound used to visualize needle placement: Yes Ultrasound used to observe medication spread: Yes Injectate: 0.5% Ropivacaine (see comment for volume) (30cc) Blood Aspirated: No Pain Paresthesia on Injection Noted: No Resistance on Injection: Normal Image Stored and Saved: Yes Events: Uneventful and Well Tolerated
[2021-12-11 13:03] VITALS: RESP 20
[2021-12-11 13:04] VITALS: BP 132/89; PULSE 68
== END 2021-12-11 13:12 | disposition home or self-care (01) ==
LOC: OR 07:35
PROVIDERS: ATTEND Orthopaedic Surgery
DX: M75.121 Complete rotator cuff tear or rupture of right shoulder, not specified as traumatic (principal); M75.41 Impingement syndrome of right shoulder; M94.211 Chondromalacia, right shoulder; M19.011 Primary osteoarthritis, right shoulder; M25.711 Osteophyte, right shoulder; G89.18 Other acute postprocedural pain; I10 Essential (primary) hypertension; E03.9 Hypothyroidism, unspecified; Z79.899 Other long term (current) drug therapy; Z79.890 Hormone replacement therapy; Z88.0 Allergy status to penicillin; Z88.6 Allergy status to analgesic agent; Z91.040 Latex allergy status; Z91.018 Allergy to other foods; Z91.011 Allergy to milk products; Z83.3 Family history of diabetes mellitus; Z82.49 Family history of ischemic heart disease and other diseases of the circulatory system; Z84.1 Family history of disorders of kidney and ureter; Z80.42 Family history of malignant neoplasm of prostate; Z80.51 Family history of malignant neoplasm of kidney
CPT/HCPCS: 64415; 76942; 29827; 29826; C1713; J2250; J0330; J1100; J0690; J2405; J3010; J2795; J2370; J2704; J2001

== ENCOUNTER → 2022-04-10 | Outpatient (CLI) | payer BC ==
--- NOTE | 2022-04-11 11:35 | MR ---
EXAMINATION TYPE: MR shoulder LT wo con DATE OF EXAM: 04/10/2022 COMPARISON: 09/07/2016 HISTORY: Left shoulder pain, history of surgery, S/P fall in Jul 2021. Multiplanar multiecho imaging of the left shoulder performed without contrast. There is some narrowing of the shoulder joint space with mild spurring of the humeral head. The subsc apularis tendon is intact. Biceps tendon is intact. There is metal artifact previous surgery at the greater tuberosity of the humerus with screws. There is some mild spurring at the AC joint and deformity of the lateral clavicle with impingement on the s upraspinatus muscle which is displaced inferiorly. The supraspinatus tendon shows no retraction. No d efinite tear. There is some increased fluid signal posteriorly involving the infraspinatus tendon. No retraction. No evidence of a fracture. The glenoid eliana appear intact. IMPRESSION: Previous reconstructive surgery. There is evidence of full thickness tear of the infraspinatus tendon at the attachment on the greater tuberosity of the humerus. No evidence of tear of the supraspinatus tendon. Small shoulder joint effusion with osteoarthritis. There is some deformity of the clavicle and imping ement on the supraspinatus muscle. There is clearing of the subdeltoid effusion compared to old exam.
== END | disposition home or self-care (01) ==
LOC: RADMRIMAIN 19:34
PROVIDERS: ATTEND Orthopaedic Surgery
DX: M75.112 Incomplete rotator cuff tear or rupture of left shoulder, not specified as traumatic (principal); M19.012 Primary osteoarthritis, left shoulder

== ENCOUNTER 2022-05-28 09:01 | Day surgery (SDC) | payer BC ==
[2022-05-27 09:10] VITALS: BMI 42.7
--- NOTE | 2022-05-27 17:35 | HP ---
HISTORY AND PHYSICAL DATE OF SURGERY: Surgery is scheduled for 05/28/2022. HISTORY OF PRESENT ILLNESS: Laci Pastor is a 62-year-old gentleman, seen with progressive left shoulder pain. We discussed options. He elected to proceed with left shoulder arthroscopy. Consent was obtained. PAST MEDICAL HISTORY: Hypothyroidism, hypertension. PAST SURGICAL HISTORY: Shoulder arthroscopy, appendectomy. DAILY MEDICATIONS: 1. Ibuprofen. 2. Levothyroxine. 3. Losartan. ALLERGIES: Penicillin, Naprosyn. SOCIAL HISTORY: Denies tobacco use. PHYSICAL EVALUATION OF THE LEFT SHOULDER: Flexion is 160 degrees, abduction 140 degrees, external rotation is 40 degrees with pain and weakness. Tenderness along the anterolateral acromion and rotator cuff insertion site. Impingement is positive at 90 degrees. Drop-arm sign is positive. Distal neurovascular exam is intact. RADIOGRAPHS: Radiographs of the left shoulder revealed some osteoarthritic changes. MRI of left shoulder revealed a rotator cuff tendon tear along with osteoarthritic changes. IMPRESSION: 1. Left shoulder impingement with rotator cuff tear. 2. Left shoulder osteoarthritis. 3. Hypertension. 4. Hypothyroidism. PLAN: Left shoulder arthroscopic subacromial decompression and rotator cuff repair. MMODL / IJN: [id number] /
[~2022-05-28 09:01] MED LIST changes: -MIDAZOLAM 2 MG/2 ML VIAL IV PRN
[2022-05-28] MEDS ORDERED: MIDAZOLAM 2 MG/2 ML VIAL IV ONE (10:35)
[2022-05-28] MEDS ORDERED: fentaNYL (PF) 50 MCG/1 ML VIAL IV ONE (10:36)
[2022-05-28 10:47] VITALS: RESP 16
--- NOTE | 2022-05-28 10:48 | P.ANPRN ---
Procedure Note - Anesthesia - Nerve Block Performed Left Interscalene Single Time Out Performed: Yes ([id number]) Date of Procedure: 05/28/22 Procedure Start Time: 10:35 Procedure Stop Time: 10:42 Location of Patient: PreOp Indication: Acute Post-Operative Pain, Requested by Surgeon Specifically requested for management of pain by DrJonh: [facility] Sedation Type: Sedate with meaningful contact maintained Preparation: Sterile Prep Position: Supine Catheter: None Needle Types: Pajunk Needle Gauge: 21 Ultrasound used to visualize needle placement: Yes Ultrasound used to observe medication spread: Yes Injectate: 0.5% Ropivacaine (see comment for volume) (30cc) Blood Aspirated: No Pain Paresthesia on Injection Noted: No Resistance on Injection: Normal Image Stored and Saved: Yes Events: Uneventful and Well Tolerated
[2022-05-28] MEDS ORDERED: ROPIVACAINE 5 MG/ML 30 ML VIAL ONE (11:40)
[2022-05-28] MEDS ORDERED: fentaNYL (PF) 50 MCG/ML 2 ML AMP ONE (11:40)
[2022-05-28] MEDS ORDERED: LIDOCAINE 2% INJ 20 MG/ML (2 ML VIAL) ONE (11:40)
[2022-05-28] MEDS ORDERED: SUCCINYLCHOLINE CHLORIDE 200 MG/10 ML VIAL IV ONE (11:40)
[2022-05-28] MEDS ORDERED: PROPOFOL 10 MG/ML 20 ML VIAL IV ONE (11:40)
[2022-05-28 13:14] VITALS: TEMP 96.8
--- NOTE | 2022-05-28 13:22 | P.OP ---
Date of Procedure: 05/28/22 ( ) Preoperative Diagnosis: Left shoulder rotator cuff tear Postoperative Diagnosis: 1. Left shoulder rotator cuff tear 2. Left shoulder glenohumeral joint osteoarthritis Procedure(s) Performed: 1. Left shoulder arthroscopic rotator cuff repair Implants: 14.75 Arthrex swivel lock Anesthesia: GETA, regional (Interscalene block) Surgeon: [facility] Supervisor Chassis Assembly #1: Christiano Hurt Estimated Blood Loss (ml): 10 Pathology: none sent Condition: stable Disposition: PACU Indications for Procedure: 62-year-old patient seen with progressive left shoulder pain. After treatment options were discussed, he elected to proceed with arthroscopy. Operative Findings: See description of procedure Description of Procedure: Patient underwent an interscalene block by department of anesthesia. The patient was then taken to the operative suite. The patient underwent a general anesthetic by the department of anesthesia. The patient was placed into a lateral position and secured. There was appropriate padding of the bony prominence. Left shoulder was then prepped and draped in normal sterile orthopedic fashion. We placed the extremity in 10 pounds of longitudinal traction. A posterior incision was now made for a posterior working portal site. The trocar and cannula were inserted into the glenohumeral joint. Arthroscopy was initiated. Spinal needle was now inserted anteriorly, to ascertain the anterior working portal site. An incision was now made in that area, a trocar was inserted followed by a probe. There were grade 3 chondromalacia changes of the humeral head without osteochondral tears present. There were grade 2 chondromalacia changes of the glenoid fossa. The biceps tendon was absent. The labrum appeared stable. Instruments were now removed from the glenohumeral joint. Utilizing the posterior working portal site, the trocar and cannula were inserted into the subacromial space. Arthroscopy initiated. I made an incision 2 fingerbreadths lateral to the acromion. I introduced my trocar followed by my ArthroCare ablator. I now began ablating thick subacromial bursal tissue, which exposed the undersurface of the anterior acromion. There was diminished subacromial space. There was an adequate decompression of the subacromial space. The before meals joint appeared stable without evidence for significant osteoarthritis. I now turned my attention to the rotator cuff tendon. There was substantial fraying throughout the rotator cuff tendon which I debrided with a motorized shaver. I probed the distal supraspinatus and noted a perforation which appeared full-thickness in nature. It appeared to be along the posterior aspect of his previous repair. I removed some residual suture material. I debrided the margins getting down to stable tendon tissue. I abraded the footprint with a motorized bur. The defects/tear measuring approximately 1.5 cm and was freely mobile over the footprint. With the assistance of Jovany BANEGAS past 3 everted mattress sutures through good bites of rotator cuff tendon. I punched hole in the footprint for insertion of an anchor. All 6 limbs of suture were passed through the eyelet of a 4.75 Arthrex swivel lock anchor. I placed the eyelet into our pre-punch hole. I held it in position while Jovany BANEGAS tension all 6 suture limbs and deployed the anchor with good fixation noted. All residual suture limbs were now clipped. We had good compression of the tendon along the entire footprint. Instruments now removed from the portal sites. All portal sites were approximated with nylon suture. Sterile dressings were applied followed by a shoulder sling. Christiano BANEGAS assisted in this case. The patient was awakened, transferred to a bed, and taken to recovery in stable condition.
[2022-05-28 14:55] VITALS: BP 112/74
[2022-05-28 15:20] VITALS: PULSE 65
[2022-05-28] MEDS ORDERED: ONDANSETRON ODT 4 MG TAB PO ONE (15:25)
== END 2022-05-28 15:45 | disposition home or self-care (01) ==
LOC: OR 09:01
PROVIDERS: ATTEND Orthopaedic Surgery
DX: M19.012 Primary osteoarthritis, left shoulder (principal); M75.102 Unspecified rotator cuff tear or rupture of left shoulder, not specified as traumatic; G89.18 Other acute postprocedural pain; E03.9 Hypothyroidism, unspecified; I10 Essential (primary) hypertension; Z88.0 Allergy status to penicillin; Z90.49 Acquired absence of other specified parts of digestive tract
CPT/HCPCS: 29827; 64415; 76942; C1713; J2250; J0330; J1100; J0690; J2405; J3010 ×2; J2795; J2704; J2001

== ENCOUNTER 2023-07-27 09:40 | Day surgery (SDC) | payer MEDICARE, BC ==
[~2023-07-27 09:40] MED LIST changes: -DEXAMETHASONE SOD PHOSPHATE 4 MG/ML 1 ML VIAL IV ONE; -HYDROmorphone 0.5 MG/0.5 ML SYRINGE IVP PRN; -LACTATED RINGERS 1,000 ML IV SCH; +LIDOCAINE 1% (10MG/ML) FOR IV START INTRADERMA PRN; -ONDANSETRON 4 MG/2 ML VIAL IVP ONE
[2023-07-27] MEDS: LACTATED RINGERS 1,000 ML IV SCH (10:17)
[2023-07-27 10:30] VITALS: TEMP 97.8
[2023-07-27] MEDS ORDERED: PROPOFOL 10 MG/ML 20 ML VIAL IV ONE (10:33)
--- NOTE | 2023-07-27 10:35 | P.GSHP ---
History of Present Illness H&P Date: 07/27/23 Chief Complaint: Colon cancer screening 63-year-old male here for colonoscopy. Last colonoscopy about 10 years ago. No bowel complaints. No family history of colon cancer. Past Medical History Past Medical History: Hypertension, Thyroid Disorder Additional Past Medical History / Comment(s): hx of scoriasis History of Any Multi-Drug Resistant Organisms: None Reported Past Surgical History: Appendectomy Additional Past Surgical History / Comment(s): BILATERAL ROTATOR CUFF REPAIR. Past Anesthesia/Blood Transfusion Reactions: No Reported Reaction Additional Past Anesthesia/Blood Transfusion Reaction / Comment(s): A LONG TIME TO WAKE UP. LOCAL BLOCK AFFECTED BREATHING. COLONOSCOPY Past Psychological History: No Psychological Hx Reported Smoking Status: Never smoker Past Alcohol Use History: None Reported Past Drug Use History: None Reported - Past Family History Father Family Medical History: Cancer Additional Family Medical History / Comment(s): Prostate cancer, heart and renal failure. 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] 30 mg PO QAM 09/06/20 07/22/23 History Losartan Potassium 50 mg PO QAM 12/09/21 07/22/23 History Allergies Allergy/AdvReac Type Severity Reaction Status Date / Time cranberry Allergy Congestion Verified 07/27/23 10:04 latex Allergy Itching/JESUS Verified 07/27/23 10:04 H Penicillins Allergy Unknown Verified 07/27/23 10:04 Childhood Pepper Allergy Congestion Verified 07/27/23 10:04 radish Allergy Congestion Verified 07/27/23 10:04 tuna oil Allergy Congestion Verified 07/27/23 10:04 Milk Containing Products AdvReac "SINUS Verified 07/27/23 10:04 (Dairy) PROBLEMS" [Dairy] naproxen [From Naprosyn] AdvReac Serious GI Verified 07/27/23 10:04 Bleeding wheat AdvReac "SINUS Verified 07/27/23 10:04 PROBLEMS" Yeast AdvReac "SINUS Verified 07/27/23 10:04 PROBLEMS" Surgical - Exam Vital Signs Temp Pulse Resp BP Pulse Ox 97.8 F 69 16 128/77 95 07/27/23 10:13 07/27/23 10:13 07/27/23 10:13 07/27/23 10:13 07/27/23 10:13 Physical exam: General: Well-developed, well-nourished HEENT: Normocephalic, sclerae nonicteric Abdomen: Nontender, nondistended Extremities: No edema Neuro: Alert and oriented Assessment and Plan (1) Colon cancer screening Narrative/Plan: Will proceed with colonoscopy at this time Current Visit: Yes Status: Acute Code(s): Z12.11 - ENCOUNTER FOR SCREENING FOR MALIGNANT NEOPLASM OF COLON SNOMED Code(s): 538697918
--- NOTE | 2023-07-27 10:45 | P.PCN ---
Date of Procedure: 07/27/23 Procedure(s) Performed: PREOPERATIVE DIAGNOSIS: Colon cancer screening POSTOPERATIVE DIAGNOSIS: Mild diverticulosis PROCEDURE: Colonoscopy ANESTHESIA: MAC SURGEON: Duncan Dexter M.D. SPECIMENS: None ENDOSCOPIC PROCEDURE: The patient was placed on the endoscopy table in the left decubitus position. The Olympus colonoscope was inserted into the anus and passed under direct visualization to the base of the cecum. The appendiceal orifice was visualized. From that point the scope was slowly withdrawn inspecting all surfaces carefully. There were no neoplastic inflammatory or polypoid lesions throughout the cecum, ascending, transverse, descending, sigmoid and rectum. There was mild scattered diverticulosis noted. Digital rectal examination was normal. The patient was taken to the recovery room in stable condition per anesthesia guidelines. RECOMMENDATIONS: Resume diet. Repeat colonoscopy 10 years.
[2023-07-27 11:41] VITALS: BP 116/77; PULSE 56; RESP 20
== END 2023-07-27 11:28 | disposition home or self-care (01) ==
LOC: ORWHC2ENDO 09:40
PROVIDERS: ATTEND Surgery
DX: Z12.11 Encounter for screening for malignant neoplasm of colon (principal); K57.30 Diverticulosis of large intestine without perforation or abscess without bleeding; I10 Essential (primary) hypertension; E07.9 Disorder of thyroid, unspecified; Z98.890 Other specified postprocedural states; Z80.42 Family history of malignant neoplasm of prostate; Z83.3 Family history of diabetes mellitus; Z79.890 Hormone replacement therapy; Z79.899 Other long term (current) drug therapy; Z88.0 Allergy status to penicillin; Z91.018 Allergy to other foods; Z91.040 Latex allergy status; Z88.6 Allergy status to analgesic agent; Z91.011 Allergy to milk products
CPT/HCPCS: J2704; G0121; 45378

== ENCOUNTER → 2023-11-05 | Outpatient (CLI) | payer MEDICARE, BC ==
--- NOTE | 2023-11-06 13:54 | MR ---
EXAMINATION TYPE: MR knee LT wo con DATE OF EXAM: 11/05/2023 COMPARISON: None HISTORY: Left knee pain swelling and weakness x1 month TECHNIQUE: Multiplanar, multisequence imaging of the left knee is performed without IV contrast. FINDINGS: There is a small joint effusion. There is a small Colmenares cyst. There is moderate edema in the circumfe rential soft tissues. No bone contusion or fracture. There is no significant thinning or chondromalacia of the patellar cartilage. There is no meniscal tear. There is degeneration of the medial meniscus. Mild strain of the medial collateral ligament. The lateral collateral ligament is intact. The cruciat e ligaments are intact. There is no abnormality of the quadriceps and patella tendons are intact. The anterior fat pads are n ormal. IMPRESSION: 1. Small joint effusion. 2. Moderate-sized soft tissue edema in the circumferential soft tissues of the knee. 3. Mild strain of the medial collateral ligament. 4. Mild degeneration of the menisci but no discrete tear.
== END | disposition home or self-care (01) ==
LOC: RADMRIMAIN 19:22
PROVIDERS: ATTEND Orthopaedic Surgery
DX: M17.12 Unilateral primary osteoarthritis, left knee (principal); R60.0 Localized edema; M25.462 Effusion, left knee

== ENCOUNTER → 2024-03-15 | Outpatient (CLI) | payer MEDICARE, BC ==
[2024-03-15 10:34] LABS: African American GFR (CKD) >90 (>60 ml/min/1.73 sqM); Blood Urea Nitrogen 23 mg/dL (9-20); Non-African American GFR(CKD) >90 (>60 ml/min/1.73 sqM)
--- NOTE | 2024-03-15 11:30 | CT ---
EXAMINATION TYPE: CT chest w con CT DLP: 672 mGycm, Automated exposure control for dose reduction was used. 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 . Coronal and sagittal reformats reviewed. FINDINGS: LUNGS/ PLEURA: No pleural effusion, pneumothorax, or focal consolidation. Scattered regions of linear scarring redemonstrated. Subsegmental atelectasis involving the medial aspect of the right upper lob e. No new suspicious pulmonary nodule or mass. AIRWAY: Patent and unremarkable.. HEART: The heart is mildly increased in size.. No pericardial effusion. MEDIASTINUM: No evidence of adenopathy. VASCULATURE: Conventional three-vessel aortic arch. Aortic root is normal caliber measuring up to 3. 4 cm. Stable ectasia of the descending thoracic aorta measuring up to 3.9 cm when measured with simil ar technique. Descending thoracic aorta measures up to 2.8 cm which is within normal limits. MUSCULOSKELETAL: Mild disc degeneration changes are present throughout the thoracolumbar spine. SOFT TISSUES/LYMPH NODES: Unremarkable. LOWER NECK: No significant findings. UPPER ABDOMEN: Subcentimeter hypodense focus within the left hepatic dome which is too small to mitchell cterize but likely represents a cyst. Small hiatal hernia. Descending colon diverticulosis identified . IMPRESSION: 1. No acute thoracic process. 2. Stable ectasia of the ascending thoracic aorta measuring up to 3.9 cm. 3. No significant change in scattered linear pulmonary scarring. [facility], , 03/15/2024 11:27 AM
== END | disposition home or self-care (01) ==
LOC: RADCTMAIN 09:52
PROVIDERS: ATTEND Internal Medicine Sleep Medicine
DX: Q25.43 Congenital aneurysm of aorta
CPT/HCPCS: 36415; 71260; 82565; 84520